=== PATIENT | female | born 1990 | race Caucasian/White ===

== ENCOUNTER 2016-03-22 08:34 | Emergency (ER) | payer OTHER ==
[~2016-03-22] VITALS: Ht 160 cm; Wt 85.1 kg
[~2016-03-22 08:34] MED LIST: BUSPAR10 MG PO; BUSPAR5 MG PO; DOCUSATE SODIU100 MG PO; FAMOTIDINE20 MG PO; HYDROXYZINE PAM25 MG PO; IBUPROFEN800 MG PO; KEFLEX500 MG PO; METHADONE5 MG PO; PNV PRENATAL P1 EACH PO; TYLENOL EXTRA500 MG PO; ULTRAM50 MG PO; VISTARIL25 MG PO; ZANTAC150 MG PO; ZOFRAN ODT4 MG PO; ZOFRAN4 MG PO
[2016-03-22] MEDS ORDERED: AZITHROMYCIN250 MG PO (09:30)
[2016-03-22 09:41] VITALS: BP 118/64
== END 2016-03-22 09:50 | disposition home or self-care (01) ==
LOC: EME 08:34
DX: J06.9 Acute upper respiratory infection, unspecified (principal); R11.2 Nausea with vomiting, unspecified; Z79.891 Long term (current) use of opiate analgesic; F17.200 Nicotine dependence, unspecified, uncomplicated
CPT/HCPCS: 99281; 99283

== ENCOUNTER 2016-06-18 12:46 | Outpatient (CLI) | payer OTHER ==
[~2016-06-18 12:46] MED LIST changes: +AZITHROMYCIN250 MG PO
[2016-06-18 12:55] VITALS: BP 112/59
[2016-06-18 14:27] LABS: ADD MIUA? YES; BILIRUBIN NEGATIVE; BLOOD NEGATIVE; COLOR AMBER ((YELLOW)); GLUCOSE (STRIP) NEGATIVE; KETONES 5; LEUKOCYTES SMALL; NITRITE NEGATIVE; PROTEIN (STRIP) 100; SPECIFIC GRAVITY 1.031 (1.000-1.030); UROBILINOGEN 0.2 MG/DL (0.2-1.0)
[2016-06-18 14:43] LABS: BACTERIA NONE SEEN /HPF; EPITHELIAL CELLS 1+ /HPF; MUCUS 2+ /LPF; RED BLOOD CELLS 0-5 /HPF (0-5); UCUL ADDED? NO; WHITE BLOOD CELLS 0-5 /HPF (0-5)
[2016-06-18 14:47] LABS: AMPHETAMINES QUANT VALUE 0 NG/ML; BARBITUATES QUANT VALUE 0 NG/ML; BENZODIAZEPINES QUANT VALUE 0 NG/ML; BENZODIAZEPINES, URINE SCREEN Negative (200 ng/mL); MARIJUANA QUANT VALUE 0 NG/ML; OPIATES QUANTITATIVE VALUE 0 NG/ML; PHENCYCLIDINE QUANT VALUE 0 NG/ML
[2016-06-18 15:35] LABS: BASOPHIL COUNT 0.1 K/uL (0-0.1); EOSINOPHIL COUNT 0.2 K/uL (0-0.3); HEMATOCRIT 35.6 % (36.0-46.0); IMMATURE GRANULOCYTE (%) 0.5 % (0.0-0.7); IMMATURE GRANULOCYTE COUNT 0.1 K/uL; INSTRUMENT ABS NEUTROPHIL CT 7.8 K/uL; LYMPHOCYTE COUNT 2.8 K/uL (1.0-2.8); MCH 30.5 PG (29.0-34.0); MCHC 31.5 G/DL (30.0-36.0); MEAN PLAT.VOLUME 11.4 uM^3 (9.5-12.4); MONOCYTE (%) 4.2 % (3-12); MONOCYTE COUNT 0.5 K/uL (0-0.8); NEUTROPHIL (%) 68.4 % (45-76); NEUTROPHIL COUNT 7.8 K/uL (1.8-6.4); PLATELET COUNT 244 K/uL (156-360); RBC DIS.WIDTH-CV 13.9 % (11.8-14.6); RBC DIS.WIDTH-SD 49.2 % (39-53); RED BLOOD COUNT 3.67 M/uL (3.80-5.20); WHITE BLOOD COUNT 11.4 K/uL (4.1-10.2)
[2016-06-18 15:46] LABS: ANION GAP 6 MEQ/L (2-14); CHLORIDE 101 MEQ/L (99-109); POTASSIUM 4.3 MEQ/L (3.7-5.4); SAMPLE HEMOLYSIS CHECK 0; SAMPLE ICTERIC CHECK 0; SAMPLE LIPEMIA CHECK 0; SODIUM 135 MEQ/L (136-147); TOTAL BILIRUBIN 0.1 MG/DL (0.0-1.0)
[2016-06-18 15:52] LABS: ALKALINE PHOSPHATASE 53 IU/L (3-129); GFR ESTIMATE (CALCULATED) > 59 mL/min/; GLUCOSE 102 mg/dL (70-99); UREA NITROGEN (BUN) 7 mg/dL (9-23)
[2016-06-19 12:14] LABS: HBSG INDEX 0.16; HIV INDEX 0.07; HIV-1/2 AB/AG COMBO Nonreactive
[2016-06-20 12:13] LABS: TREPONEMA ANTIBODY NEGATIVE (NEGATIVE)
== END 2016-06-18 17:50 | disposition home or self-care (01) ==
LOC: LDRP-OP 12:46 → 2WEST 12:47 → LDRP-OP 12-05 18:02
PROVIDERS: Advanced Practice Midwife
DX: O26.892 Other specified pregnancy related conditions, second trimester (principal); R10.9 Unspecified abdominal pain; R39.89 Other symptoms and signs involving the genitourinary system; Z3A.20 20 weeks gestation of pregnancy; O99.322 Drug use complicating pregnancy, second trimester; F11.20 Opioid dependence, uncomplicated; O99.332 Smoking (tobacco) complicating pregnancy, second trimester; F17.200 Nicotine dependence, unspecified, uncomplicated; O09.893 Supervision of other high risk pregnancies, third trimester
CPT/HCPCS: 59025; 80053; 80306 90; 81003; 85025; 86703; 86762; 86780; 86850; 86900; 86901; 87070; 87075; 87205; 87340; G0378

== ENCOUNTER 2016-08-07 14:30 | Emergency (ER) | payer OTHER ==
[~2016-08-07] VITALS: Ht 160 cm; Wt 82.9 kg
[2016-08-07 15:15] LABS: ADD MIUA? YES; BILIRUBIN SMALL; BLOOD NEGATIVE; GLUCOSE (STRIP) NEGATIVE; KETONES 5; LEUKOCYTES LARGE; NITRITE NEGATIVE; PROTEIN (STRIP) 100; SPECIFIC GRAVITY 1.032 (1.000-1.030)
[2016-08-07 15:18] LABS: COLOR DK YELLOW ((YELLOW))
[2016-08-07 15:29] LABS: BACTERIA 3+ /HPF; CASTS NONE SEEN /LPF; CRYSTALS NONE SEEN; EPITHELIAL CELLS 3+ /HPF; MUCUS 2+ /LPF; UCUL ADDED? YES
[2016-08-07] MEDS ORDERED: MACROBID100 MG PO (15:37)
[2016-08-07 16:25] VITALS: BP 104/61
== END 2016-08-07 16:27 | disposition home or self-care (01) ==
LOC: EME 14:30
PROVIDERS: Nurse Practitioner Family
DX: O99.513 Diseases of the respiratory system complicating pregnancy, third trimester (principal); O23.43 Unspecified infection of urinary tract in pregnancy, third trimester; O99.333 Smoking (tobacco) complicating pregnancy, third trimester; J06.9 Acute upper respiratory infection, unspecified; F17.200 Nicotine dependence, unspecified, uncomplicated; Z3A.28 28 weeks gestation of pregnancy; Z88.0 Allergy status to penicillin; Z88.1 Allergy status to other antibiotic agents
CPT/HCPCS: 81003; 87086; 87651 90; 99281; 99284

== ENCOUNTER 2016-08-12 14:14 | Emergency (ER) | payer OTHER ==
[~2016-08-12] VITALS: Ht 160 cm; Wt 82.3 kg
[~2016-08-12 14:14] MED LIST changes: +MACROBID100 MG PO
[2016-08-12 14:27] VITALS: BP 123/41
[2016-08-12] MEDS ORDERED: VENTOLIN HFA18 GM IH (16:18)
[2016-08-12] MEDS ORDERED: PREDNISONE20 MG PO (16:18)
[2016-08-12] MEDS ORDERED: TESSALON PERLE100 MG PO (16:18)
== END 2016-08-12 16:33 | disposition home or self-care (01) ==
LOC: EME 14:14
DX: J20.9 Acute bronchitis, unspecified (principal); Z88.0 Allergy status to penicillin; Z88.1 Allergy status to other antibiotic agents; Z33.1 Pregnant state, incidental; Z72.0 Tobacco use
CPT/HCPCS: 71020; 94640; 99281; 99283

== ENCOUNTER 2016-10-21 08:11 | Inpatient (IN) | payer OTHER ==
[2016-10-21] VITALS (12 sets, daily range): BP systolic 99–122; BP diastolic 48–68
[~2016-10-21] VITALS: Ht 160 cm; Wt 82.1 kg
[~2016-10-21 08:11] MED LIST changes: +PREDNISONE20 MG PO; +TESSALON PERLE100 MG PO; +VENTOLIN HFA18 GM IH
[2016-10-21 10:01] LABS: EOSINOPHIL (%) 0.7 % (0-5); EOSINOPHIL COUNT 0.1 K/uL (0-0.3); HEMATOCRIT 29.1 % (36.0-46.0); IMMATURE GRANULOCYTE (%) 0.8 % (0.0-0.7); IMMATURE GRANULOCYTE COUNT 0.1 K/uL; INSTRUMENT ABS NEUTROPHIL CT 6.6 K/uL; LYMPHOCYTE COUNT 2.3 K/uL (1.0-2.8); MCHC 31.6 G/DL (30.0-36.0); MCV 94.8 FL (83-99); MEAN PLAT.VOLUME 10.6 uM^3 (9.5-12.4); MONOCYTE (%) 4.6 % (3-12); MONOCYTE COUNT 0.4 K/uL (0-0.8); NEUTROPHIL (%) 69.6 % (45-76); NEUTROPHIL COUNT 6.6 K/uL (1.8-6.4); PLATELET COUNT 240 K/uL (156-360); RBC DIS.WIDTH-CV 14.4 % (11.8-14.6); RED BLOOD COUNT 3.07 M/uL (3.80-5.20); WHITE BLOOD COUNT 9.4 K/uL (4.1-10.2)
[2016-10-21 10:25] LABS: AMPHETAMINES QUANT VALUE 0 NG/ML; BARBITUATES QUANT VALUE 0 NG/ML; BENZODIAZEPINES QUANT VALUE 0 NG/ML; BENZODIAZEPINES, URINE SCREEN Negative (200 ng/mL); MARIJUANA QUANT VALUE 0 NG/ML; OPIATES QUANTITATIVE VALUE 0 NG/ML; PHENCYCLIDINE QUANT VALUE 0 NG/ML
[2016-10-21] MEDS ORDERED: PRENATAL TABLE1 EAC3 PO (10:58)
[2016-10-21] MEDS ORDERED: METHADOSE10 MG/1 ML PO (10:59)
[2016-10-22 07:25] LABS: EOSINOPHIL (%) 0.8 % (0-5); EOSINOPHIL COUNT 0.1 K/uL (0-0.3); HEMATOCRIT 25.3 % (36.0-46.0); IMMATURE GRANULOCYTE (%) 0.8 % (0.0-0.7); IMMATURE GRANULOCYTE COUNT 0.1 K/uL; INSTRUMENT ABS NEUTROPHIL CT 7.2 K/uL; LYMPHOCYTE COUNT 3.8 K/uL (1.0-2.8); MCH 30.6 PG (29.0-34.0); MCV 95.5 FL (83-99); MONOCYTE (%) 6.9 % (3-12); MONOCYTE COUNT 0.8 K/uL (0-0.8); NEUTROPHIL (%) 59.8 % (45-76); NEUTROPHIL COUNT 7.2 K/uL (1.8-6.4); PLATELET COUNT 221 K/uL (156-360); RBC DIS.WIDTH-CV 14.6 % (11.8-14.6); RBC DIS.WIDTH-SD 50.2 % (39-53); RED BLOOD COUNT 2.65 M/uL (3.80-5.20)
[2016-10-22 23:00] VITALS: BP 115/52
== END 2016-10-23 12:01 | disposition home or self-care (01) | DRG 775 ==
LOC: LDRP-OP → 2WEST 08:12 → LDRP-OP 12-05 18:01
PROVIDERS: Advanced Practice Midwife; Obstetrics & Gynecology
DX: O36.5930 Maternal care for other known or suspected poor fetal growth, third trimester, not applicable or unspecified (principal); O99.334 Smoking (tobacco) complicating childbirth; F17.200 Nicotine dependence, unspecified, uncomplicated; E66.9 Obesity, unspecified; O99.214 Obesity complicating childbirth; Z37.0 Single live birth; Z68.33 Body mass index [BMI] 33.0-33.9, adult; O99.02 Anemia complicating childbirth; D50.9 Iron deficiency anemia, unspecified; Z3A.38 38 weeks gestation of pregnancy; O99.324 Drug use complicating childbirth; F11.20 Opioid dependence, uncomplicated
CPT/HCPCS: 80306 90; 85025; C1755; J7120

== ENCOUNTER 2016-11-14 14:07 | Emergency (ER) | payer OTHER ==
[~2016-11-14] VITALS: Ht 160 cm; Wt 85.8 kg
[~2016-11-14 14:07] MED LIST changes: +METHADOSE10 MG/1 ML PO; +PRENATAL TABLE1 EAC3 PO
[2016-11-14 16:11] LABS: ADD MIUA? YES; BILIRUBIN NEGATIVE; BLOOD MODERATE; COLOR YELLOW ((YELLOW)); GLUCOSE (STRIP) NEGATIVE; KETONES NEGATIVE; LEUKOCYTES LARGE; NITRITE NEGATIVE; PROTEIN (STRIP) NEGATIVE; SPECIFIC GRAVITY 1.011 (1.000-1.030); UROBILINOGEN 0.2 MG/DL (0.2-1.0)
[2016-11-14 16:18] LABS: EOSINOPHIL (%) 2.2 % (0-5); EOSINOPHIL COUNT 0.3 K/uL (0-0.3); HEMATOCRIT 31.7 % (36.0-46.0); IMMATURE GRANULOCYTE (%) 0.3 % (0.0-0.7); INSTRUMENT ABS NEUTROPHIL CT 7.9 K/uL; LYMPHOCYTE COUNT 3.1 K/uL (1.0-2.8); MCH 29.5 PG (29.0-34.0); MCHC 30.9 G/DL (30.0-36.0); MCV 95.5 FL (83-99); MEAN PLAT.VOLUME 9.9 uM^3 (9.5-12.4); MONOCYTE (%) 5.4 % (3-12); MONOCYTE COUNT 0.7 K/uL (0-0.8); NEUTROPHIL COUNT 7.9 K/uL (1.8-6.4); PLATELET COUNT 362 K/uL (156-360); RBC DIS.WIDTH-CV 14.3 % (11.8-14.6); RED BLOOD COUNT 3.32 M/uL (3.80-5.20)
[2016-11-14 16:24] LABS: BACTERIA RARE /HPF; EPITHELIAL CELLS RARE /HPF; MUCUS TRACE /LPF; RED BLOOD CELLS 40-50 /HPF (0-5); UCUL ADDED? YES; WHITE BLOOD CELLS TNTC /HPF (0-5)
[2016-11-14 16:30] LABS: CHLORIDE 103 mEq/L (99-109); POTASSIUM 4.4 mEq/L (3.7-5.4); SODIUM 140 mEq/L (136-147)
[2016-11-14 16:31] LABS: MAGNESIUM 2.1 mg/dL (1.3-2.7)
[2016-11-14 16:33] LABS: GLUCOSE 78 mg/dL (70-99)
[2016-11-14 16:34] LABS: ANION GAP 9 MEQ/L (2-14)
[2016-11-14 16:35] LABS: TOTAL BILIRUBIN 0.2 mg/dL (0.0-1.0)
[2016-11-14 16:36] LABS: ALKALINE PHOSPHATASE 87 IU/L (3-129)
[2016-11-14 16:37] LABS: GFR ESTIMATE (CALCULATED) > 59 mL/min/
[2016-11-14 16:38] LABS: UREA NITROGEN (BUN) 10 mg/dL (9-23)
[2016-11-14] MEDS ORDERED: MACROBID100 MG PO (17:20)
[2016-11-14] MEDS ORDERED: TRAZODONE HCL50 MG PO (17:43)
[2016-11-14] MEDS ORDERED: CATAPRES0.1 MG PO (17:43)
[2016-11-14 17:53] VITALS: BP 118/57
== END 2016-11-14 18:19 | disposition home or self-care (01) ==
LOC: EME 14:07
PROVIDERS: Physician Assistant Medical
DX: N39.0 Urinary tract infection, site not specified (principal); R60.0 Localized edema; F17.200 Nicotine dependence, unspecified, uncomplicated
CPT/HCPCS: 80053; 81003; 83735; 85025; 87086; 99281; 99284

== ENCOUNTER 2016-11-19 22:13 | Emergency (ER) | payer OTHER ==
[~2016-11-19] VITALS: Ht 160 cm; Wt 84.6 kg
[~2016-11-19 22:13] MED LIST changes: +CATAPRES0.1 MG PO; +TRAZODONE HCL50 MG PO
[2016-11-19 23:55] VITALS: BP 150/99
[2016-11-19 23:55] LABS: AMPHETAMINE PRESUMPTIVE POSITIVE (500 ng/mL); BARBITURATES NEGATIVE (200 ng/mL); BENZODIAZEPINES NEGATIVE (150 ng/mL); COCAINE NEGATIVE (150 ng/mL); INTERNAL CONTROLS VALID? YES; METHADONE PRESUMPTIVE POSITIVE (200 ng/mL); METHAMPHETAMINE NEGATIVE (500 ng/mL); OPIATES (MORPHINE) NEGATIVE (100 ng/mL); OXYCODONE NEGATIVE (100 ng/mL); PHENCYCLIDINE PRESUMPTIVE POSITIVE (25 ng/mL); PROPOXYPHENE NEGATIVE (300 ng/mL); THC CANNABINOIDS NEGATIVE (50 ng/mL); TRICYCLIC ANTIDEPRESSANTS NEGATIVE (300 ng/mL)
[2016-11-19 23:56] LABS: ADD MEDTOX COMMENT Y
[2016-11-20 00:03] LABS: BASOPHIL COUNT 0.1 K/uL (0-0.1); EOSINOPHIL (%) 1.7 % (0-5); EOSINOPHIL COUNT 0.2 K/uL (0-0.3); HEMATOCRIT 31.4 % (36.0-46.0); IMMATURE GRANULOCYTE (%) 0.3 % (0.0-0.7); INSTRUMENT ABS NEUTROPHIL CT 8.8 K/uL; LYMPHOCYTE COUNT 2.9 K/uL (1.0-2.8); MCH 29.3 PG (29.0-34.0); MCHC 31.5 G/DL (30.0-36.0); MCV 92.9 FL (83-99); MEAN PLAT.VOLUME 9.6 uM^3 (9.5-12.4); MONOCYTE COUNT 0.6 K/uL (0-0.8); NEUTROPHIL (%) 69.7 % (45-76); NEUTROPHIL COUNT 8.8 K/uL (1.8-6.4); PLATELET COUNT 362 K/uL (156-360); RBC DIS.WIDTH-CV 14.6 % (11.8-14.6); RBC DIS.WIDTH-SD 49.3 % (39-53); RED BLOOD COUNT 3.38 M/uL (3.80-5.20); WHITE BLOOD COUNT 12.7 K/uL (4.1-10.2)
[2016-11-20 00:13] LABS: CHLORIDE 105 mEq/L (99-109); POTASSIUM 3.6 mEq/L (3.7-5.4); SODIUM 142 mEq/L (136-147)
[2016-11-20 00:16] LABS: GLUCOSE 78 mg/dL (70-99)
[2016-11-20 00:17] LABS: ANION GAP 11 MEQ/L (2-14)
[2016-11-20 00:19] LABS: ALKALINE PHOSPHATASE 94 IU/L (3-129); GFR ESTIMATE (CALCULATED) > 59 mL/min/; SERUM ETHYL ALCOHOL < 10 mg/dL
[2016-11-20 00:20] LABS: UREA NITROGEN (BUN) 11 mg/dL (9-23)
[2016-11-20 00:22] LABS: TOTAL BILIRUBIN 0.3 mg/dL (0.0-1.0)
== END 2016-11-20 00:33 | disposition home or self-care (01) ==
LOC: EME → EDBD 22:13 → EME 11-20 00:33
PROVIDERS: Emergency Medicine
DX: F43.20 Adjustment disorder, unspecified (principal); F11.20 Opioid dependence, uncomplicated; F32.9 Major depressive disorder, single episode, unspecified; M79.89 Other specified soft tissue disorders; F17.210 Nicotine dependence, cigarettes, uncomplicated; Z88.0 Allergy status to penicillin; Z88.1 Allergy status to other antibiotic agents
CPT/HCPCS: 73110; 80053; 84999; 85025; 90839; 99281; 99284; G0480

== ENCOUNTER 2016-11-30 11:38 | Emergency (ER) | payer OTHER ==
[~2016-11-30] VITALS: Ht 160 cm; Wt 82.2 kg
[2016-11-30] MEDS ORDERED: ERYTHROMYC1 APPLICAT BOTH EYES (12:51)
[2016-11-30 13:33] VITALS: BP 136/70
== END 2016-11-30 13:34 | disposition home or self-care (01) ==
LOC: EME 11:38
DX: H10.9 Unspecified conjunctivitis (principal); M54.9 Dorsalgia, unspecified; G89.29 Other chronic pain; F17.200 Nicotine dependence, unspecified, uncomplicated
CPT/HCPCS: 99281; 99284

== ENCOUNTER 2016-12-09 02:52 | Emergency (ER) | payer OTHER ==
[~2016-12-09] VITALS: Ht 160 cm; Wt 80.6 kg
[~2016-12-09 02:52] MED LIST changes: +ERYTHROMYC1 APPLICAT BOTH EYES
[2016-12-09 05:16] LABS: CHLORIDE 105 mEq/L (99-109); POTASSIUM 3.7 mEq/L (3.7-5.4); SODIUM 142 mEq/L (136-147)
[2016-12-09 05:18] LABS: GLUCOSE 87 mg/dL (70-99)
[2016-12-09 05:19] LABS: ANION GAP 13 MEQ/L (2-14)
[2016-12-09 05:22] LABS: GFR ESTIMATE (CALCULATED) > 59 mL/min/; UREA NITROGEN (BUN) 12 mg/dL (9-23)
[2016-12-09 05:36] LABS: EOSINOPHIL (%) 3.2 % (0-5); EOSINOPHIL COUNT 0.3 K/uL (0-0.3); HEMATOCRIT 34.9 % (36.0-46.0); IMMATURE GRANULOCYTE (%) 0.2 % (0.0-0.7); INSTRUMENT ABS NEUTROPHIL CT 3.7 K/uL; LYMPHOCYTE COUNT 3.8 K/uL (1.0-2.8); MCH 28.5 PG (29.0-34.0); MCHC 30.9 G/DL (30.0-36.0); MCV 92.1 FL (83-99); MEAN PLAT.VOLUME 10.1 uM^3 (9.5-12.4); MONOCYTE (%) 7.1 % (3-12); MONOCYTE COUNT 0.6 K/uL (0-0.8); NEUTROPHIL (%) 44.1 % (45-76); NEUTROPHIL COUNT 3.7 K/uL (1.8-6.4); PLATELET COUNT 362 K/uL (156-360); RBC DIS.WIDTH-CV 14.9 % (11.8-14.6); RED BLOOD COUNT 3.79 M/uL (3.80-5.20); WHITE BLOOD COUNT 8.5 K/uL (4.1-10.2)
[2016-12-09 06:34] LABS: QUANTITATIVE HCG < 4.0 MIU/ML
[2016-12-09] MEDS ORDERED: TRAZODONE HCL50 MG PO (06:46)
[2016-12-09] MEDS ORDERED: CLONIDINE HCL0.1 MG PO (06:46)
[2016-12-09 07:11] VITALS: BP 106/78
== END 2016-12-09 07:13 | disposition home or self-care (01) ==
LOC: EME 02:52
PROVIDERS: Emergency Medicine
DX: F11.23 Opioid dependence with withdrawal (principal); R05 Cough; F17.200 Nicotine dependence, unspecified, uncomplicated; Z88.0 Allergy status to penicillin; Z88.1 Allergy status to other antibiotic agents
CPT/HCPCS: 71020; 80048; 84702; 85025; 93005; 94640; 99281; 99285; J1885

== ENCOUNTER 2016-12-21 22:24 | Inpatient (IN) | payer OTHER ==
[~2016-12-21] VITALS: Ht 157.5 cm; Wt 80.3 kg
[~2016-12-21 22:24] MED LIST changes: +CLONIDINE HCL0.1 MG PO
[2016-12-21 23:11] LABS: EOSINOPHIL (%) 2.8 % (0-5); EOSINOPHIL COUNT 0.3 K/uL (0-0.3); HEMATOCRIT 32.2 % (36.0-46.0); IMMATURE GRANULOCYTE (%) 0.5 % (0.0-0.7); INSTRUMENT ABS NEUTROPHIL CT 4.9 K/uL; LYMPHOCYTE COUNT 3.3 K/uL (1.0-2.8); MCH 27.7 PG (29.0-34.0); MCHC 30.1 G/DL (30.0-36.0); MONOCYTE (%) 4.1 % (3-12); MONOCYTE COUNT 0.4 K/uL (0-0.8); NEUTROPHIL (%) 55.3 % (45-76); NEUTROPHIL COUNT 4.9 K/uL (1.8-6.4); PLATELET COUNT 387 K/uL (156-360); RBC DIS.WIDTH-CV 15.3 % (11.8-14.6); RBC DIS.WIDTH-SD 51.6 % (39-53); WHITE BLOOD COUNT 8.8 K/uL (4.1-10.2)
[2016-12-21 23:15] LABS: ADD MIUA? YES; BILIRUBIN NEGATIVE; BLOOD MODERATE; COLOR YELLOW ((YELLOW)); GLUCOSE (STRIP) NEGATIVE; KETONES NEGATIVE; LEUKOCYTES TRACE; NITRITE NEGATIVE; PROTEIN (STRIP) NEGATIVE; SPECIFIC GRAVITY 1.006 (1.000-1.030); UROBILINOGEN 0.2 MG/DL (0.2-1.0)
[2016-12-21 23:17] LABS: BACTERIA NONE SEEN /HPF; EPITHELIAL CELLS RARE /HPF; MUCUS TRACE /LPF; UCUL ADDED? NO; WHITE BLOOD CELLS 0-5 /HPF (0-5)
[2016-12-21 23:25] LABS: AMPHETAMINE NEGATIVE (500 ng/mL); BARBITURATES NEGATIVE (200 ng/mL); BENZODIAZEPINES PRESUMPTIVE POSITIVE (150 ng/mL); COCAINE PRESUMPTIVE POSITIVE (150 ng/mL); INTERNAL CONTROLS VALID? YES; METHADONE PRESUMPTIVE POSITIVE (200 ng/mL); METHAMPHETAMINE NEGATIVE (500 ng/mL); OPIATES (MORPHINE) NEGATIVE (100 ng/mL); OXYCODONE NEGATIVE (100 ng/mL); PHENCYCLIDINE PRESUMPTIVE POSITIVE (25 ng/mL); PROPOXYPHENE NEGATIVE (300 ng/mL); THC CANNABINOIDS NEGATIVE (50 ng/mL); TRICYCLIC ANTIDEPRESSANTS PRESUMPTIVE POSITIVE (300 ng/mL)
[2016-12-21 23:26] LABS: CHLORIDE 105 mEq/L (99-109); POTASSIUM 3.4 mEq/L (3.7-5.4); SODIUM 143 mEq/L (136-147)
[2016-12-21 23:26] LABS: ADD MEDTOX COMMENT Y
[2016-12-21 23:29] LABS: GLUCOSE 94 mg/dL (70-99)
[2016-12-21 23:30] LABS: ANION GAP 10 MEQ/L (2-14); TOTAL BILIRUBIN 0.2 mg/dL (0.0-1.0)
[2016-12-21 23:31] LABS: SERUM ETHYL ALCOHOL < 10 mg/dL
[2016-12-21 23:32] LABS: GFR ESTIMATE (CALCULATED) > 59 mL/min/
[2016-12-21 23:33] LABS: ALKALINE PHOSPHATASE 79 IU/L (3-129)
[2016-12-21 23:34] LABS: UREA NITROGEN (BUN) 10 mg/dL (9-23)
[2016-12-21 23:36] LABS: CREATINE KINASE 160 IU/L (1-294); SALICYLATE < 5.0 MG/DL (15-30); TOTAL CK 160 IU/L (1-294)
[2016-12-21 23:43] LABS: QUANTITATIVE HCG < 4.0 MIU/ML
[2016-12-21 23:44] LABS: CK-MB 2.9 ng/mL (0.0-4.9)
[2016-12-22] VITALS (17 sets, daily range): BP systolic 101–160; BP diastolic 62–98
[2016-12-22 00:20] LABS: BENZODIAZEPINES QUANT VALUE 0 NG/ML; BENZODIAZEPINES, URINE SCREEN Negative (200 ng/mL)
[2016-12-22 06:55] LABS: BICARBONATE 29.7 mEq/L (22-26); CARBOXY HGB 2.6 % (0-5); COMMENTS - BLOOD GASES A+C+; DEVICE NRBM; FI02 100 %; METHEMOGLOBIN 1.7 % (0-1.5); O2 FLOW 15 L/MIN; PCO2 55 mm Hg (35-45); PO2 55 mm Hg (80-100); SITE RR; pH 7.34 (7.35-7.45)
[2016-12-22 06:56] LABS: TOTAL RESP RATE 15 resp/min
[2016-12-22 08:43] LABS: BASE EXCESS 1.7 mEq/L (-3 to +3); BICARBONATE 28.1 mEq/L (22-26); CARBOXY HGB 2.1 % (0-5); COMMENTS - BLOOD GASES A+C+; DEVICE 840; FI02 70 %; METHEMOGLOBIN 1.2 % (0-1.5); MODE A/C; PCO2 52 mm Hg (35-45); PO2 65 mm Hg (80-100); SITE LR; pH 7.34 (7.35-7.45)
[2016-12-22 08:44] LABS: MECHANICAL RATE 10 resp/min; PEEP 12 CM/H20; TIDAL VOLUME 550 ML; TOTAL RESP RATE 15 resp/min
[2016-12-22 09:35] LABS: MAGNESIUM 1.8 mg/dl (1.3-2.7)
[2016-12-22 09:57] LABS: METH RESISTANT S AUREUS PCR NEGATIVE (NEGATIVE)
[2016-12-22 09:58] LABS: PROBE CHECK PASS; SPECIMEN PROCESSING CONTROL PASS
[2016-12-23] VITALS (22 sets, daily range): BP systolic 92–125; BP diastolic 42–71
[2016-12-23 05:22] LABS: MCHC 30.6 G/DL (30.0-36.0); MCV 94.5 FL (83-99); MEAN PLAT.VOLUME 10.3 uM^3 (9.5-12.4); PLATELET COUNT 314 K/uL (156-360); RBC DIS.WIDTH-CV 15.8 % (11.8-14.6); RBC DIS.WIDTH-SD 54.9 % (39-53); RED BLOOD COUNT 3.28 M/uL (3.80-5.20); WHITE BLOOD COUNT 29.6 K/uL (4.1-10.2)
[2016-12-23 05:50] LABS: ANION GAP 10 MEQ/L (2-14); CHLORIDE 105 MEQ/L (99-109); GFR ESTIMATE (CALCULATED) > 59 mL/min/; GLUCOSE 77 mg/dL (70-99); SAMPLE HEMOLYSIS CHECK 0; SAMPLE ICTERIC CHECK 0; SAMPLE LIPEMIA CHECK 0; SODIUM 142 MEQ/L (136-147); UREA NITROGEN (BUN) 12 mg/dL (9-23)
[2016-12-23 05:59] LABS: POTASSIUM 4.1 MEQ/L (3.7-5.4)
[2016-12-24] VITALS (25 sets, daily range): BP systolic 0–130; BP diastolic 0–81
[2016-12-24 05:21] LABS: MEAN PLAT.VOLUME 10.5 uM^3 (9.5-12.4); PLATELET COUNT 303 K/uL (156-360)
[2016-12-24 05:47] LABS: ANION GAP 9 MEQ/L (2-14); CHLORIDE 107 MEQ/L (99-109); GFR ESTIMATE (CALCULATED) > 59 mL/min/; GLUCOSE 87 mg/dL (70-99); MAGNESIUM 1.7 mg/dl (1.3-2.7); POTASSIUM 3.8 MEQ/L (3.7-5.4); SAMPLE HEMOLYSIS CHECK 0; SAMPLE ICTERIC CHECK 0; SAMPLE LIPEMIA CHECK 0; SODIUM 139 MEQ/L (136-147); UREA NITROGEN (BUN) 11 mg/dL (9-23)
[2016-12-24 06:01] LABS: BASE EXCESS 0.2 mEq/L (-3 to +3); BICARBONATE 25.4 mEq/L (22-26); CARBOXY HGB 2.1 % (0-5); METHEMOGLOBIN 1.8 % (0-1.5); PO2 71 mm Hg (80-100); pH 7.38 (7.35-7.45)
[2016-12-24 06:02] LABS: COMMENTS - BLOOD GASES C+; DEVICE VENT; FI02 30 %; MECHANICAL RATE 4 resp/min; MODE SIMV VC+; PCO2 43 mm Hg (35-45); PEEP 8 CM/H20; PRES. SUPPORT 10 CM/H2O; SITE LB; TOTAL RESP RATE 17 resp/min
[2016-12-24 06:14] LABS: HEMATOCRIT 28.4 % (36.0-46.0); MCHC 29.9 G/DL (30.0-36.0); MCV 93.4 FL (83-99); RBC DIS.WIDTH-CV 15.9 % (11.8-14.6); RBC DIS.WIDTH-SD 54.3 % (39-53); RED BLOOD COUNT 3.04 M/uL (3.80-5.20); WHITE BLOOD COUNT 30.3 K/uL (4.1-10.2)
[2016-12-24 07:27] LABS: ABS NEUTROPHIL COUNT 27.4; ANISOCYTOSIS 1+; BAND NEUTROPHILS 17.3 % (0-8.0); BASOPHILS 0.9 %; EOSINOPHIL ABS CT 0.3; EOSINOPHILS 0.9 % (0-5.0); HEMATOLOGY COMMENT 1 SN; HYPOCHROMASIA 1+; INSTRUMENT ABS NEUTROPHIL CT 26.2 K/uL; LYMPHOCYTES 6.2 % (15.0-45.0); MACROCYTES 1+; MYELOCYTES 0.4 %; PLAT.SUFFICIENCY ADEQUATE; POIKILOCYTOSIS 1+
[2016-12-25] VITALS (22 sets, daily range): BP systolic 109–155; BP diastolic 57–97
[2016-12-25 05:31] LABS: WHITE BLOOD COUNT 16.8 K/uL (4.1-10.2)
[2016-12-25 05:32] LABS: EOSINOPHIL (%) 1.7 % (0-5); EOSINOPHIL COUNT 0.3 K/uL (0-0.3); HEMATOCRIT 27.7 % (36.0-46.0); IMMATURE GRANULOCYTE COUNT 0.2 K/uL; INSTRUMENT ABS NEUTROPHIL CT 13.8 K/uL; MCH 28.2 PG (29.0-34.0); MCHC 30.3 G/DL (30.0-36.0); MEAN PLAT.VOLUME 10.8 uM^3 (9.5-12.4); MONOCYTE (%) 3.4 % (3-12); MONOCYTE COUNT 0.6 K/uL (0-0.8); NEUTROPHIL COUNT 13.8 K/uL (1.8-6.4); PLATELET COUNT 266 K/uL (156-360); RBC DIS.WIDTH-CV 15.6 % (11.8-14.6); RBC DIS.WIDTH-SD 53.4 % (39-53); RED BLOOD COUNT 2.98 M/uL (3.80-5.20)
[2016-12-25 06:02] LABS: ANION GAP 9 MEQ/L (2-14); CHLORIDE 108 MEQ/L (99-109); GFR ESTIMATE (CALCULATED) > 59 mL/min/; GLUCOSE 115 mg/dL (70-99); POTASSIUM 3.5 MEQ/L (3.7-5.4); SAMPLE HEMOLYSIS CHECK 0; SAMPLE ICTERIC CHECK 0; SAMPLE LIPEMIA CHECK 0; SODIUM 140 MEQ/L (136-147); UREA NITROGEN (BUN) 9 mg/dL (9-23)
[2016-12-25] MEDS ORDERED: NEURONTIN300 MG PO (14:23)
[2016-12-25] MEDS ORDERED: LAMICTAL150 M1 PO (14:23)
[2016-12-25] MEDS ORDERED: CYCLOBENZAPRINE10 MG PO (14:23)
[2016-12-26] VITALS (11 sets, daily range): BP systolic 119–153; BP diastolic 72–105
[2016-12-26 09:42] LABS: HEMATOCRIT 29.5 % (36.0-46.0); MCH 28.7 PG (29.0-34.0); MCHC 32.5 G/DL (30.0-36.0); MEAN PLAT.VOLUME 10.4 uM^3 (9.5-12.4); RBC DIS.WIDTH-CV 15.1 % (11.8-14.6); RBC DIS.WIDTH-SD 48.6 % (39-53); RED BLOOD COUNT 3.34 M/uL (3.80-5.20); WHITE BLOOD COUNT 13.7 K/uL (4.1-10.2)
[2016-12-26 09:50] LABS: MCV 88.3 FL (83-99); PLATELET COUNT 354 K/uL (156-360)
[2016-12-26 10:01] LABS: ANION GAP 10 MEQ/L (2-14); CHLORIDE 105 MEQ/L (99-109); GFR ESTIMATE (CALCULATED) > 59 mL/min/; GLUCOSE 107 mg/dL (70-99); SAMPLE HEMOLYSIS CHECK 0; SAMPLE ICTERIC CHECK 0; SAMPLE LIPEMIA CHECK 0; SODIUM 141 MEQ/L (136-147); UREA NITROGEN (BUN) 7 mg/dL (9-23)
[2016-12-27] VITALS (14 sets, daily range): BP systolic 128–148; BP diastolic 30–100
[2016-12-27 08:11] LABS: HEMATOCRIT 30.9 % (36.0-46.0); MCH 27.2 PG (29.0-34.0); MCHC 30.4 G/DL (30.0-36.0); MCV 89.6 FL (83-99); MEAN PLAT.VOLUME 9.7 uM^3 (9.5-12.4); PLATELET COUNT 404 K/uL (156-360); RBC DIS.WIDTH-CV 15.3 % (11.8-14.6); RBC DIS.WIDTH-SD 50.4 % (39-53); RED BLOOD COUNT 3.45 M/uL (3.80-5.20); WHITE BLOOD COUNT 15.3 K/uL (4.1-10.2)
[2016-12-27 08:44] LABS: ANION GAP 12 MEQ/L (2-14); CHLORIDE 104 MEQ/L (99-109); GFR ESTIMATE (CALCULATED) > 59 mL/min/; GLUCOSE 106 mg/dL (70-99); POTASSIUM 3.8 MEQ/L (3.7-5.4); SAMPLE HEMOLYSIS CHECK 0; SAMPLE ICTERIC CHECK 0; SAMPLE LIPEMIA CHECK 0; SODIUM 142 MEQ/L (136-147); UREA NITROGEN (BUN) 12 mg/dL (9-23)
[2016-12-28 06:47] LABS: HEMATOCRIT 30.9 % (36.0-46.0); MCH 27.2 PG (29.0-34.0); MCHC 30.1 G/DL (30.0-36.0); MCV 90.4 FL (83-99); MEAN PLAT.VOLUME 9.9 uM^3 (9.5-12.4); NRBC (%) 0.3 /100 WBC (0-0); PLATELET COUNT 418 K/uL (156-360); RBC DIS.WIDTH-CV 15.2 % (11.8-14.6); RBC DIS.WIDTH-SD 50.4 % (39-53); RED BLOOD COUNT 3.42 M/uL (3.80-5.20); WHITE BLOOD COUNT 12.5 K/uL (4.1-10.2)
[2016-12-28 07:30] VITALS: BP 161/63
[2016-12-28] MEDS ORDERED: LEVOFLOXACIN750 MG PO (08:14)
[2016-12-28] MEDS ORDERED: VENTOLIN HFA18 GM IH (08:14)
[2016-12-28] MEDS ORDERED: NICOTINE PATCH1 EAC2 TD (08:14)
[2016-12-28] MEDS ORDERED: PREDNISONE20 MG PO (08:14)
== END 2016-12-28 10:38 | disposition home or self-care (01) | DRG 917 ==
LOC: EME 22:24 → EDOF 12-22 04:28 → ENRESERV 12-22 04:32 → EDOF 12-22 05:58 → 4WEST 12-22 05:58 → EDOF 12-22 05:58 → ENRESERV 12-22 06:00 → 5WEST 12-22 06:04 → ENRESERV 12-22 07:16 → 4WEST 12-22 07:16 → ENRESERV 12-27 14:19 → 5SOUTH 12-27 15:32
PROVIDERS: Emergency Medicine; Hospitalist; Internal Medicine; Internal Medicine Critical Care Medicine; Specialist
DX: T40.2X1A Poisoning by other opioids, accidental (unintentional), initial encounter (principal); T40.5X1A Poisoning by cocaine, accidental (unintentional), initial encounter; T40.901A Poisoning by unspecified psychodysleptics [hallucinogens], accidental (unintentional), initial encounter; T42.4X1A Poisoning by benzodiazepines, accidental (unintentional), initial encounter; J96.01 Acute respiratory failure with hypoxia; J69.0 Pneumonitis due to inhalation of food and vomit; F14.129 Cocaine abuse with intoxication, unspecified; F11.229 Opioid dependence with intoxication, unspecified; F16.129 Hallucinogen abuse with intoxication, unspecified; F13.129 Sedative, hypnotic or anxiolytic abuse with intoxication, unspecified; F32.9 Major depressive disorder, single episode, unspecified; F41.9 Anxiety disorder, unspecified; E87.2 Acidosis; R40.20 Unspecified coma; I34.0 Nonrheumatic mitral (valve) insufficiency; E87.6 Hypokalemia; E66.9 Obesity, unspecified; Z68.33 Body mass index [BMI] 33.0-33.9, adult; D64.9 Anemia, unspecified; F17.200 Nicotine dependence, unspecified, uncomplicated; Z81.8 Family history of other mental and behavioral disorders
CPT/HCPCS: 36600; 70450; 71010; 80048; 80053; 80175 90; 80202; 81003; 82550; 82553; 82803; 83735; 84100; 84702; 84999; 85025; 85027; 87070; 87077; 87147; 87186; 87205; 87641; 92526 GN; 92610 GN; 93005; 93306; 94002; 94003; 94640; 94640 76; 94667; 94668; 94799; 99202; 99281; 99285; G0480; J1630; J1650; J1956; J2060; J2250; J2310; J2405; J2704; J3010; J3370; J3475; J3486; J7030; J7050; J7512; S0028

== ENCOUNTER 2017-01-30 22:35 | Emergency (ER) | payer OTHER ==
[~2017-01-30] VITALS: Ht 160 cm; Wt 79.0 kg
[~2017-01-30 22:35] MED LIST changes: +CYCLOBENZAPRINE10 MG PO; +LAMICTAL150 M1 PO; +LEVOFLOXACIN750 MG PO; +NEURONTIN300 MG PO; +NICOTINE PATCH1 EAC2 TD
[2017-01-30 23:00] LABS: HEMATOCRIT 34.4 % (36.0-46.0); MCHC 29.9 G/DL (30.0-36.0); MCV 90.3 FL (83-99); MEAN PLAT.VOLUME 10.7 uM^3 (9.5-12.4); PLATELET COUNT 370 K/uL (156-360); RBC DIS.WIDTH-CV 17.3 % (11.8-14.6); RBC DIS.WIDTH-SD 57.4 % (39-53); RED BLOOD COUNT 3.81 M/uL (3.80-5.20); WHITE BLOOD COUNT 9.4 K/uL (4.1-10.2)
[2017-01-30 23:22] LABS: CHLORIDE 105 mEq/L (99-109); POTASSIUM 3.8 mEq/L (3.7-5.4); SODIUM 143 mEq/L (136-147)
[2017-01-30 23:24] LABS: GLUCOSE 120 mg/dL (70-99)
[2017-01-30 23:26] LABS: ANION GAP 10 MEQ/L (2-14)
[2017-01-30 23:27] LABS: SERUM ETHYL ALCOHOL < 10 mg/dL
[2017-01-30 23:28] LABS: GFR ESTIMATE (CALCULATED) > 59 mL/min/
[2017-01-30 23:30] LABS: UREA NITROGEN (BUN) 13 mg/dL (9-23)
[2017-01-30 23:31] LABS: SALICYLATE < 5.0 MG/DL (15-30)
[2017-01-30 23:37] LABS: QUANTITATIVE HCG < 4.0 MIU/ML
[2017-01-31 00:22] LABS: AMPHETAMINE NEGATIVE (500 ng/mL); BARBITURATES NEGATIVE (200 ng/mL); BENZODIAZEPINES PRESUMPTIVE POSITIVE (150 ng/mL); COCAINE NEGATIVE (150 ng/mL); INTERNAL CONTROLS VALID? YES; METHADONE PRESUMPTIVE POSITIVE (200 ng/mL); METHAMPHETAMINE NEGATIVE (500 ng/mL); OPIATES (MORPHINE) NEGATIVE (100 ng/mL); OXYCODONE NEGATIVE (100 ng/mL); PHENCYCLIDINE PRESUMPTIVE POSITIVE (25 ng/mL); PROPOXYPHENE NEGATIVE (300 ng/mL); THC CANNABINOIDS PRESUMPTIVE POSITIVE (50 ng/mL); TRICYCLIC ANTIDEPRESSANTS NEGATIVE (300 ng/mL)
[2017-01-31 00:23] LABS: ADD MEDTOX COMMENT Y
[2017-01-31 01:02] LABS: BENZODIAZEPINES QUANT VALUE 0 NG/ML; BENZODIAZEPINES, URINE SCREEN Negative (200 ng/mL)
[2017-01-31 06:10] VITALS: BP 123/70
== END 2017-01-31 06:11 | disposition home or self-care (01) ==
LOC: EME → EDBD 22:35 → EME 01-31 06:11
PROVIDERS: Emergency Medicine
DX: F19.10 Other psychoactive substance abuse, uncomplicated (principal); F17.200 Nicotine dependence, unspecified, uncomplicated; F32.9 Major depressive disorder, single episode, unspecified; F41.9 Anxiety disorder, unspecified; Z88.0 Allergy status to penicillin
CPT/HCPCS: 71010; 80048; 84702; 84999; 85027; 93005; 99281; 99284; G0480; J7030

== ENCOUNTER 2017-02-18 10:01 | Emergency (ER) | payer OTHER ==
[~2017-02-18] VITALS: Ht 160 cm; Wt 77.2 kg
[2017-02-18 11:07] LABS: BASOPHIL COUNT 0.1 K/uL (0-0.1); EOSINOPHIL (%) 2.3 % (0-5); EOSINOPHIL COUNT 0.2 K/uL (0-0.3); IMMATURE GRANULOCYTE (%) 0.3 % (0.0-0.7); INSTRUMENT ABS NEUTROPHIL CT 4.7 K/uL; LYMPHOCYTE COUNT 1.6 K/uL (1.0-2.8); MCH 27.3 PG (29.0-34.0); MCHC 30.3 G/DL (30.0-36.0); MEAN PLAT.VOLUME 11.5 uM^3 (9.5-12.4); MONOCYTE (%) 5.8 % (3-12); MONOCYTE COUNT 0.4 K/uL (0-0.8); NEUTROPHIL (%) 68.1 % (45-76); NEUTROPHIL COUNT 4.7 K/uL (1.8-6.4); PLATELET COUNT 308 K/uL (156-360); RBC DIS.WIDTH-CV 17.3 % (11.8-14.6); RBC DIS.WIDTH-SD 57.8 % (39-53); RED BLOOD COUNT 4.22 M/uL (3.80-5.20); WHITE BLOOD COUNT 6.9 K/uL (4.1-10.2)
[2017-02-18 11:15] LABS: CHLORIDE 103 mEq/L (99-109); POTASSIUM 3.9 mEq/L (3.7-5.4); SODIUM 140 mEq/L (136-147)
[2017-02-18 11:18] LABS: GLUCOSE 116 mg/dL (70-99)
[2017-02-18 11:19] LABS: ANION GAP 11 MEQ/L (2-14)
[2017-02-18 11:20] LABS: TOTAL BILIRUBIN 0.3 mg/dL (0.0-1.0)
[2017-02-18 11:21] LABS: SERUM ETHYL ALCOHOL < 10 mg/dL
[2017-02-18 11:22] LABS: ALKALINE PHOSPHATASE 77 IU/L (3-129); GFR ESTIMATE (CALCULATED) > 59 mL/min/
[2017-02-18 11:23] LABS: DIRECT BILIRUBIN 0.1 mg/dL (0.0-0.3)
[2017-02-18 11:24] LABS: UREA NITROGEN (BUN) 11 mg/dL (9-23)
[2017-02-18 11:25] LABS: SALICYLATE < 5.0 MG/DL (15-30)
[2017-02-18 11:34] LABS: QUANTITATIVE HCG < 4.0 MIU/ML
[2017-02-18 12:59] LABS: ADD MIUA? YES; BILIRUBIN NEGATIVE; BLOOD NEGATIVE; COLOR YELLOW ((YELLOW)); GLUCOSE (STRIP) NEGATIVE; KETONES NEGATIVE; LEUKOCYTES TRACE; NITRITE NEGATIVE; PROTEIN (STRIP) 100; SPECIFIC GRAVITY 1.015 (1.000-1.030); UROBILINOGEN 0.2 MG/DL (0.2-1.0)
[2017-02-18 13:15] LABS: BACTERIA NONE SEEN /HPF; EPITHELIAL CELLS 1+ /HPF; HYALINE CASTS 0-5 /LPF; MUCUS 1+ /LPF; RED BLOOD CELLS 0-5 /HPF (0-5); WHITE BLOOD CELLS 0-5 /HPF (0-5)
[2017-02-18 13:33] LABS: AMPHETAMINE NEGATIVE (500 ng/mL); BARBITURATES NEGATIVE (200 ng/mL); BENZODIAZEPINES PRESUMPTIVE POSITIVE (150 ng/mL); COCAINE NEGATIVE (150 ng/mL); INTERNAL CONTROLS VALID? YES; METHADONE PRESUMPTIVE POSITIVE (200 ng/mL); METHAMPHETAMINE NEGATIVE (500 ng/mL); OPIATES (MORPHINE) PRESUMPTIVE POSITIVE (100 ng/mL); OXYCODONE NEGATIVE (100 ng/mL); PHENCYCLIDINE PRESUMPTIVE POSITIVE (25 ng/mL); PROPOXYPHENE NEGATIVE (300 ng/mL); THC CANNABINOIDS PRESUMPTIVE POSITIVE (50 ng/mL); TRICYCLIC ANTIDEPRESSANTS NEGATIVE (300 ng/mL)
[2017-02-18 13:35] LABS: ADD MEDTOX COMMENT Y
[2017-02-18 13:48] VITALS: BP 112/76
[2017-02-18 14:24] LABS: BENZODIAZEPINES QUANT VALUE 0 NG/ML; BENZODIAZEPINES, URINE SCREEN Negative (200 ng/mL)
== END 2017-02-18 13:51 | disposition home or self-care (01) ==
LOC: EME 10:01
PROVIDERS: Emergency Medicine
DX: F32.9 Major depressive disorder, single episode, unspecified (principal); F11.20 Opioid dependence, uncomplicated; F16.20 Hallucinogen dependence, uncomplicated; F41.9 Anxiety disorder, unspecified; F17.200 Nicotine dependence, unspecified, uncomplicated; Z88.0 Allergy status to penicillin
CPT/HCPCS: 71020; 80048; 80076; 81003; 84702; 84999; 85025; 90839; 99281; 99284; G0480

== ENCOUNTER 2017-03-10 00:26 | Emergency (ER) | payer OTHER ==
[~2017-03-10] VITALS: Ht 160 cm; Wt 75.8 kg
[2017-03-10 01:53] LABS: HEMATOCRIT 35.7 % (36.0-46.0); MCH 27.3 PG (29.0-34.0); MCHC 30.5 G/DL (30.0-36.0); MCV 89.3 FL (83-99); MEAN PLAT.VOLUME 10.4 uM^3 (9.5-12.4); PLATELET COUNT 361 K/uL (156-360); RBC DIS.WIDTH-CV 17.6 % (11.8-14.6); RBC DIS.WIDTH-SD 58.1 % (39-53); WHITE BLOOD COUNT 11.9 K/uL (4.1-10.2)
[2017-03-10 02:01] LABS: CHLORIDE 104 mEq/L (99-109); POTASSIUM 3.8 mEq/L (3.7-5.4); SODIUM 140 mEq/L (136-147)
[2017-03-10 02:04] LABS: GLUCOSE 93 mg/dL (70-99)
[2017-03-10 02:05] LABS: ANION GAP 10 MEQ/L (2-14); TOTAL BILIRUBIN 0.4 mg/dL (0.0-1.0)
[2017-03-10 02:07] LABS: GFR ESTIMATE (CALCULATED) > 59 mL/min/; SERUM ETHYL ALCOHOL < 10 mg/dL
[2017-03-10 02:08] LABS: ALKALINE PHOSPHATASE 83 IU/L (3-129)
[2017-03-10 02:09] LABS: UREA NITROGEN (BUN) 10 mg/dL (9-23)
[2017-03-10 02:11] LABS: SALICYLATE < 5.0 MG/DL (15-30)
[2017-03-10 02:21] LABS: INTERNAL CONTROL VALID? YES
[2017-03-10 02:28] LABS: ADD MEDTOX COMMENT Y; AMPHETAMINE NEGATIVE (500 ng/mL); BARBITURATES NEGATIVE (200 ng/mL); BENZODIAZEPINES NEGATIVE (150 ng/mL); COCAINE PRESUMPTIVE POSITIVE (150 ng/mL); INTERNAL CONTROLS VALID? YES; METHADONE PRESUMPTIVE POSITIVE (200 ng/mL); METHAMPHETAMINE NEGATIVE (500 ng/mL); OPIATES (MORPHINE) NEGATIVE (100 ng/mL); OXYCODONE NEGATIVE (100 ng/mL); PHENCYCLIDINE PRESUMPTIVE POSITIVE (25 ng/mL); PROPOXYPHENE NEGATIVE (300 ng/mL); THC CANNABINOIDS PRESUMPTIVE POSITIVE (50 ng/mL); TRICYCLIC ANTIDEPRESSANTS NEGATIVE (300 ng/mL)
[2017-03-10 04:30] VITALS: BP 137/72
== END 2017-03-10 04:45 | disposition home or self-care (01) ==
LOC: EME → EDBD 00:26 → EME 04:45
PROVIDERS: Emergency Medicine
DX: F19.10 Other psychoactive substance abuse, uncomplicated (principal); F41.9 Anxiety disorder, unspecified; F32.9 Major depressive disorder, single episode, unspecified; F17.200 Nicotine dependence, unspecified, uncomplicated; Z88.0 Allergy status to penicillin
CPT/HCPCS: 80053; 84703; 84999; 85027; 93005; G0480

== ENCOUNTER 2017-03-19 08:08 | Emergency (ER) | payer OTHER ==
[~2017-03-19] VITALS: Ht 160 cm; Wt 77.4 kg
[2017-03-19] MEDS ORDERED: TESSALON PERLE100 MG PO (13:38)
[2017-03-19 14:34] VITALS: BP 113/51
[2017-03-20] MEDS ORDERED: MUCINEX DM ER1 EACH PO (09:27)
[2017-03-20] MEDS ORDERED: PREDNISONE20 MG PO (09:27)
== END 2017-03-19 14:36 | disposition home or self-care (01) ==
LOC: EME 08:08
PROVIDERS: Physician Assistant Medical
DX: B34.9 Viral infection, unspecified (principal); Z88.0 Allergy status to penicillin
CPT/HCPCS: 71020; 84703; 87651 90; 94640; 99281; 99283; J1885

== ENCOUNTER 2017-03-20 06:32 | Emergency (ER) | payer OTHER ==
[~2017-03-20] VITALS: Ht 160 cm; Wt 78.5 kg
[2017-03-20 06:36] VITALS: BP 130/92
[2017-03-20 07:49] LABS: HEMATOCRIT 34.5 % (36.0-46.0); HEMOGLOBIN 10.6 G/DL (11.9-15.5); MCH 27.2 PG (29.0-34.0); MCHC 30.7 G/DL (30.0-36.0); MCV 88.7 FL (83-99); PLATELET COUNT 320 K/uL (156-360); RBC DIS.WIDTH-CV 17.3 % (11.8-14.6); RED BLOOD COUNT 3.89 M/uL (3.80-5.20); WHITE BLOOD COUNT 16.4 K/uL (4.1-10.2)
[2017-03-20 07:59] LABS: ALBUMIN 3.8 g/dL (3.2-4.8)
[2017-03-20 08:00] LABS: CHLORIDE 102 mEq/L (99-109); POTASSIUM 4.1 mEq/L (3.7-5.4); SODIUM 138 mEq/L (136-147)
[2017-03-20 08:02] LABS: GLUCOSE 110 mg/dL (70-99); TOTAL PROTEIN 7.4 g/dL (6.4-8.3)
[2017-03-20 08:04] LABS: TOTAL BILIRUBIN 0.3 mg/dL (0.0-1.0)
[2017-03-20 08:05] LABS: ALKALINE PHOSPHATASE 78 IU/L (3-129)
[2017-03-20 08:06] LABS: CREATININE 0.7 mg/dL (0.6-1.3); GFR ESTIMATE (CALCULATED) > 59 mL/min/
[2017-03-20 08:07] LABS: AST (GOT) 14 IU/L (2-34); UREA NITROGEN (BUN) 12 mg/dL (9-23)
[2017-03-20 08:09] LABS: ALT (GPT) 9 IU/L (3-49)
[2017-03-20 08:16] LABS: QUANTITATIVE HCG < 4.0 MIU/ML
[2017-03-20 08:26] LABS: MONOSPOT (MONONUCLEOSIS SEROL) NEGATIVE
[2017-03-20] MEDS ORDERED: MUCINEX DM ER1 EACH PO (09:27)
[2017-03-20] MEDS ORDERED: PREDNISONE20 MG PO (09:27)
== END 2017-03-20 09:42 | disposition home or self-care (01) ==
LOC: EME 06:32
PROVIDERS: Nurse Practitioner Family
DX: J40 Bronchitis, not specified as acute or chronic (principal); B34.9 Viral infection, unspecified; D64.9 Anemia, unspecified; F17.200 Nicotine dependence, unspecified, uncomplicated; F32.9 Major depressive disorder, single episode, unspecified; F41.9 Anxiety disorder, unspecified; Z88.0 Allergy status to penicillin; Z88.1 Allergy status to other antibiotic agents
CPT/HCPCS: 71046; 80053; 84702; 85027; 86308; 87502; 87651 90; 99281; 99284

== ENCOUNTER 2017-03-24 10:01 | Emergency (ER) | payer OTHER ==
[~2017-03-24] VITALS: Ht 162.6 cm; Wt 80.0 kg
[~2017-03-24 10:01] MED LIST changes: +MUCINEX DM ER1 EACH PO
[2017-03-24 10:54] LABS: HEMATOCRIT 37.9 % (36.0-46.0); MCH 27.5 PG (29.0-34.0); MCHC 31.7 G/DL (30.0-36.0); MCV 86.7 FL (83-99); RBC DIS.WIDTH-SD 54.1 % (39-53); RED BLOOD COUNT 4.37 M/uL (3.80-5.20); WHITE BLOOD COUNT 14.5 K/uL (4.1-10.2)
[2017-03-24 11:02] LABS: PLATELET COUNT 482 K/uL (156-360)
[2017-03-24 11:04] LABS: ALBUMIN 4.4 g/dL (3.2-4.8); CHLORIDE 103 mEq/L (99-109); POTASSIUM 4.3 mEq/L (3.7-5.4); SODIUM 143 mEq/L (136-147)
[2017-03-24 11:07] LABS: GLUCOSE 119 mg/dL (70-99); TOTAL PROTEIN 8.6 g/dL (6.4-8.3)
[2017-03-24 11:09] LABS: SERUM ETHYL ALCOHOL < 10 mg/dL; TOTAL BILIRUBIN 0.4 mg/dL (0.0-1.0)
[2017-03-24 11:10] LABS: ALKALINE PHOSPHATASE 97 IU/L (3-129); CREATININE 0.8 mg/dL (0.6-1.3); GFR ESTIMATE (CALCULATED) > 59 mL/min/
[2017-03-24 11:11] LABS: UREA NITROGEN (BUN) 14 mg/dL (9-23)
[2017-03-24 11:12] LABS: AST (GOT) 21 IU/L (2-34)
[2017-03-24 11:13] LABS: ALT (GPT) 15 IU/L (3-49)
[2017-03-24 13:15] LABS: AMPHETAMINE NEGATIVE (500 ng/mL); BENZODIAZEPINES NEGATIVE (150 ng/mL); COCAINE PRESUMPTIVE POSITIVE (150 ng/mL); METHAMPHETAMINE NEGATIVE (500 ng/mL); OPIATES (MORPHINE) NEGATIVE (100 ng/mL); PHENCYCLIDINE PRESUMPTIVE POSITIVE (25 ng/mL); THC CANNABINOIDS PRESUMPTIVE POSITIVE (50 ng/mL); TRICYCLIC ANTIDEPRESSANTS NEGATIVE (300 ng/mL)
[2017-03-24 13:16] LABS: BARBITURATES NEGATIVE (200 ng/mL); BUPRENORPHINE NEGATIVE (10 ng/mL); METHADONE PRESUMPTIVE POSITIVE (200 ng/mL); OXYCODONE NEGATIVE (100 ng/mL); PROPOXYPHENE NEGATIVE (300 ng/mL)
[2017-03-24 15:21] VITALS: BP 135/54
[2017-03-24] MEDS ORDERED: MOTRIN600 MG PO (20:50)
[2017-03-24] MEDS ORDERED: ZOFRAN4 MG PO (20:50)
== END 2017-03-24 15:22 | disposition home or self-care (01) ==
LOC: EME 10:01
PROVIDERS: Emergency Medicine
DX: F19.10 Other psychoactive substance abuse, uncomplicated (principal); Z59.0 Homelessness; F32.9 Major depressive disorder, single episode, unspecified; F41.9 Anxiety disorder, unspecified; Z88.0 Allergy status to penicillin; F17.200 Nicotine dependence, unspecified, uncomplicated; F11.20 Opioid dependence, uncomplicated
CPT/HCPCS: 80053; 82948; 84999; 85027; 99281; 99282; G0480

== ENCOUNTER 2017-03-24 17:43 | Emergency (ER) | payer OTHER ==
[~2017-03-24] VITALS: Ht 170.2 cm; Wt 77.5 kg
[2017-03-24 19:04] LABS: HEMATOCRIT 37.9 % (36.0-46.0); HEMOGLOBIN 11.9 G/DL (11.9-15.5); MCH 26.9 PG (29.0-34.0); MCHC 31.4 G/DL (30.0-36.0); MCV 85.7 FL (83-99); PLATELET COUNT 510 K/uL (156-360); RBC DIS.WIDTH-CV 17.2 % (11.8-14.6); RBC DIS.WIDTH-SD 54.2 % (39-53); RED BLOOD COUNT 4.42 M/uL (3.80-5.20)
[2017-03-24 19:14] LABS: ALBUMIN 4.5 g/dL (3.2-4.8); CHLORIDE 104 mEq/L (99-109); POTASSIUM 4.1 mEq/L (3.7-5.4); SODIUM 140 mEq/L (136-147)
[2017-03-24 19:16] LABS: GLUCOSE 150 mg/dL (70-99); TOTAL PROTEIN 8.6 g/dL (6.4-8.3)
[2017-03-24 19:19] LABS: TOTAL BILIRUBIN 0.3 mg/dL (0.0-1.0)
[2017-03-24 19:20] LABS: ALKALINE PHOSPHATASE 97 IU/L (3-129); CREATININE 0.7 mg/dL (0.6-1.3); GFR ESTIMATE (CALCULATED) > 59 mL/min/
[2017-03-24 19:21] LABS: UREA NITROGEN (BUN) 11 mg/dL (9-23)
[2017-03-24 19:22] LABS: AST (GOT) 21 IU/L (2-34)
[2017-03-24 19:23] LABS: ALT (GPT) 15 IU/L (3-49)
[2017-03-24 19:29] LABS: QUANTITATIVE HCG < 4.0 MIU/ML
[2017-03-24 20:22] LABS: LIPASE 27 U/L (1.0-51.0)
[2017-03-24 20:43] LABS: APPEARANCE CLEAR ((CLEAR)); BILIRUBIN NEGATIVE; BLOOD NEGATIVE; COLOR COLORLESS ((YELLOW)); GLUCOSE (STRIP) >=500; KETONES NEGATIVE; LEUKOCYTES NEGATIVE; NITRITE NEGATIVE; PROTEIN (STRIP) NEGATIVE; SPECIFIC GRAVITY 1.036 (1.000-1.030); UCUL ADDED? NO; UROBILINOGEN 0.2 MG/DL (0.2-1.0)
[2017-03-24] MEDS ORDERED: ZOFRAN4 MG PO (20:50)
[2017-03-24] MEDS ORDERED: MOTRIN600 MG PO (20:50)
[2017-03-24 21:18] VITALS: BP 128/88
== END 2017-03-24 21:19 | disposition home or self-care (01) ==
LOC: EME 17:43
DX: R11.2 Nausea with vomiting, unspecified (principal); R19.7 Diarrhea, unspecified; R51 Headache; R05 Cough; M54.9 Dorsalgia, unspecified; R10.9 Unspecified abdominal pain; F16.90 Hallucinogen use, unspecified, uncomplicated; F17.200 Nicotine dependence, unspecified, uncomplicated; Z59.0 Homelessness
CPT/HCPCS: 80053; 81003; 83690; 84702; 85027; 99281; 99284

== ENCOUNTER 2017-03-29 09:15 | Emergency (ER) | payer OTHER ==
[~2017-03-29] VITALS: Ht 160 cm; Wt 75.8 kg
[~2017-03-29 09:15] MED LIST changes: +MOTRIN600 MG PO
[2017-03-29 09:35] LABS: HEMATOCRIT 36.7 % (36.0-46.0); HEMOGLOBIN 11.2 G/DL (11.9-15.5); MCH 27.3 PG (29.0-34.0); MCHC 30.5 G/DL (30.0-36.0); MCV 89.5 FL (83-99); PLATELET COUNT 400 K/uL (156-360); RBC DIS.WIDTH-CV 17.8 % (11.8-14.6); RBC DIS.WIDTH-SD 57.9 % (39-53); WHITE BLOOD COUNT 18.6 K/uL (4.1-10.2)
[2017-03-29 10:50] LABS: QUANTITATIVE HCG < 4.0 MIU/ML
[2017-03-29 11:22] LABS: ALBUMIN 3.9 G/DL (3.2-4.8); ALKALINE PHOSPHATASE 72 IU/L (3-129); ALT (GPT) 12 IU/L (3-49); AST (GOT) 20 IU/L (2-34); CHLORIDE 104 MEQ/L (99-109); CREATININE 0.7 MG/DL (0.6-1.3); GFR ESTIMATE (CALCULATED) > 59 mL/min/; GLUCOSE 88 mg/dL (70-99); SODIUM 142 MEQ/L (136-147); TOTAL BILIRUBIN 0.2 MG/DL (0.0-1.0); UREA NITROGEN (BUN) 18 mg/dL (9-23)
[2017-03-29] MEDS ORDERED: ZOFRAN ODT4 MG PO (12:03)
[2017-03-29] MEDS ORDERED: IMODIUM A-D2 M2 PO (12:03)
[2017-03-29 12:14] VITALS: BP 96/75
== END 2017-03-29 12:15 | disposition home or self-care (01) ==
LOC: EME 09:15
DX: R11.2 Nausea with vomiting, unspecified (principal); R19.7 Diarrhea, unspecified; J02.9 Acute pharyngitis, unspecified; J34.89 Other specified disorders of nose and nasal sinuses; F11.99 Opioid use, unspecified with unspecified opioid-induced disorder; F17.200 Nicotine dependence, unspecified, uncomplicated
CPT/HCPCS: 80053; 81003; 84702; 85027; 99281; 99284

== ENCOUNTER 2017-04-13 15:15 | Emergency (ER) | payer OTHER ==
[~2017-04-13] VITALS: Ht 162.6 cm; Wt 75.9 kg
[~2017-04-13 15:15] MED LIST changes: +IMODIUM A-D2 M2 PO
[2017-04-13 16:31] LABS: BASOPHIL (%) 0.4 % (0-1); EOSINOPHIL COUNT 0.2 K/uL (0-0.3); HEMATOCRIT 31.9 % (36.0-46.0); HEMOGLOBIN 9.8 G/DL (11.9-15.5); IMMATURE GRANULOCYTE (%) 0.5 % (0.0-0.7); LYMPHOCYTE (%) 39.9 % (15-42); LYMPHOCYTE COUNT 4.3 K/uL (1.0-2.8); MCHC 30.7 G/DL (30.0-36.0); MCV 87.9 FL (83-99); MONOCYTE (%) 4.9 % (3-12); MONOCYTE COUNT 0.5 K/uL (0-0.8); NEUTROPHIL (%) 52.3 % (45-76); NEUTROPHIL COUNT 5.7 K/uL (1.8-6.4); PLATELET COUNT 379 K/uL (156-360); RBC DIS.WIDTH-CV 17.2 % (11.8-14.6); RBC DIS.WIDTH-SD 54.8 % (39-53); RED BLOOD COUNT 3.63 M/uL (3.80-5.20); WHITE BLOOD COUNT 10.9 K/uL (4.1-10.2)
[2017-04-13 16:39] LABS: ALBUMIN 3.9 g/dL (3.2-4.8); CHLORIDE 105 mEq/L (99-109); POTASSIUM 3.6 mEq/L (3.7-5.4); SODIUM 142 mEq/L (136-147)
[2017-04-13 16:41] LABS: GLUCOSE 99 mg/dL (70-99); TOTAL PROTEIN 7.5 g/dL (6.4-8.3)
[2017-04-13 16:43] LABS: TOTAL BILIRUBIN 0.2 mg/dL (0.0-1.0)
[2017-04-13 16:44] LABS: SERUM ETHYL ALCOHOL < 10 mg/dL
[2017-04-13 16:45] LABS: CREATININE 0.7 mg/dL (0.6-1.3); GFR ESTIMATE (CALCULATED) > 59 mL/min/
[2017-04-13 16:46] LABS: ALKALINE PHOSPHATASE 68 IU/L (3-129); AST (GOT) 11 IU/L (2-34); DIRECT BILIRUBIN 0.1 mg/dL (0.0-0.3)
[2017-04-13 16:47] LABS: UREA NITROGEN (BUN) 12 mg/dL (9-23)
[2017-04-13 16:48] LABS: SALICYLATE < 5.0 MG/DL (15-30)
[2017-04-13 16:49] LABS: ACETAMINOPHEN (TYLENOL) < 10 mcg/mL (10-30); ALT (GPT) 9 IU/L (3-49)
[2017-04-13 16:54] LABS: QUANTITATIVE HCG < 4.0 MIU/ML
[2017-04-13 17:03] LABS: APPEARANCE CLOUDY ((CLEAR)); BILIRUBIN NEGATIVE; BLOOD NEGATIVE; COLOR YELLOW ((YELLOW)); GLUCOSE (STRIP) NEGATIVE; KETONES NEGATIVE; LEUKOCYTES SMALL; NITRITE NEGATIVE; PROTEIN (STRIP) 30; SPECIFIC GRAVITY 1.025 (1.000-1.030)
[2017-04-13 17:13] LABS: AMPHETAMINE NEGATIVE (500 ng/mL); BARBITURATES PRESUMPTIVE POSITIVE (200 ng/mL); BENZODIAZEPINES PRESUMPTIVE POSITIVE (150 ng/mL); BUPRENORPHINE NEGATIVE (10 ng/mL); COCAINE PRESUMPTIVE POSITIVE (150 ng/mL); METHADONE PRESUMPTIVE POSITIVE (200 ng/mL); METHAMPHETAMINE NEGATIVE (500 ng/mL); OPIATES (MORPHINE) NEGATIVE (100 ng/mL); OXYCODONE NEGATIVE (100 ng/mL); PHENCYCLIDINE PRESUMPTIVE POSITIVE (25 ng/mL); PROPOXYPHENE NEGATIVE (300 ng/mL); THC CANNABINOIDS PRESUMPTIVE POSITIVE (50 ng/mL); TRICYCLIC ANTIDEPRESSANTS NEGATIVE (300 ng/mL)
[2017-04-13 17:31] LABS: BACTERIA RARE /HPF; EPITHELIAL CELLS RARE /HPF; HYALINE CASTS 0-5 /LPF; MUCUS 4+ /LPF; RED BLOOD CELLS NONE SEEN /HPF (0-5); WHITE BLOOD CELLS 0-5 /HPF (0-5)
[2017-04-13 17:34] LABS: BENZODIAZEPINES, URINE SCREEN POSITIVE (200 ng/mL)
[2017-04-13 20:18] VITALS: BP 104/69
== END 2017-04-13 20:29 | disposition home or self-care (01) ==
LOC: EME 15:15
PROVIDERS: Emergency Medicine
DX: T40.991A Poisoning by other psychodysleptics [hallucinogens], accidental (unintentional), initial encounter (principal); T40.7X1A Poisoning by cannabis (derivatives), accidental (unintentional), initial encounter; T40.5X1A Poisoning by cocaine, accidental (unintentional), initial encounter; F14.129 Cocaine abuse with intoxication, unspecified; F12.129 Cannabis abuse with intoxication, unspecified; F16.129 Hallucinogen abuse with intoxication, unspecified
CPT/HCPCS: 80048; 80076; 81003; 84702; 84999; 85025; 99281; 99285; G0480; J2310; J7030

== ENCOUNTER 2017-04-23 00:44 | Emergency (ER) | payer OTHER ==
[2017-04-23 00:58] LABS: BASOPHIL (%) 0.5 % (0-1); BASOPHIL COUNT 0.1 K/uL (0-0.1); EOSINOPHIL COUNT 0.2 K/uL (0-0.3); HEMATOCRIT 34.6 % (36.0-46.0); HEMOGLOBIN 10.8 G/DL (11.9-15.5); IMMATURE GRANULOCYTE (%) 0.4 % (0.0-0.7); LYMPHOCYTE (%) 43.7 % (15-42); LYMPHOCYTE COUNT 4.7 K/uL (1.0-2.8); MCH 26.9 PG (29.0-34.0); MCHC 31.2 G/DL (30.0-36.0); MCV 86.3 FL (83-99); MONOCYTE (%) 4.5 % (3-12); MONOCYTE COUNT 0.5 K/uL (0-0.8); NEUTROPHIL (%) 48.9 % (45-76); NEUTROPHIL COUNT 5.3 K/uL (1.8-6.4); PLATELET COUNT 439 K/uL (156-360); RBC DIS.WIDTH-CV 17.2 % (11.8-14.6); RBC DIS.WIDTH-SD 54.9 % (39-53); RED BLOOD COUNT 4.01 M/uL (3.80-5.20); WHITE BLOOD COUNT 10.8 K/uL (4.1-10.2)
[2017-04-23 01:06] LABS: AMYLASE 39 IU/L (1-118); CHLORIDE 105 mEq/L (99-109); POTASSIUM 3.6 mEq/L (3.7-5.4); SODIUM 142 mEq/L (136-147)
[2017-04-23 01:08] LABS: GLUCOSE 95 mg/dL (70-99)
[2017-04-23 01:11] LABS: SERUM ETHYL ALCOHOL 174 mg/dL
[2017-04-23 01:12] LABS: CREATININE 0.8 mg/dL (0.6-1.3); GFR ESTIMATE (CALCULATED) > 59 mL/min/
[2017-04-23 01:13] LABS: UREA NITROGEN (BUN) 8 mg/dL (9-23)
[2017-04-23 01:15] LABS: LIPASE 27 U/L (1.0-51.0)
[2017-04-23 01:20] LABS: CREATINE KINASE 805 IU/L (1-294)
[2017-04-23 01:21] LABS: QUANTITATIVE HCG < 4.0 MIU/ML
[2017-04-23 02:20] LABS: APPEARANCE CLEAR ((CLEAR)); BILIRUBIN NEGATIVE; BLOOD SMALL; COLOR STRAW ((YELLOW)); GLUCOSE (STRIP) NEGATIVE; KETONES NEGATIVE; LEUKOCYTES NEGATIVE; NITRITE NEGATIVE; PROTEIN (STRIP) NEGATIVE; SPECIFIC GRAVITY 1.023 (1.000-1.030); UROBILINOGEN 0.2 MG/DL (0.2-1.0)
[2017-04-23 02:23] LABS: BACTERIA NONE SEEN /HPF; EPITHELIAL CELLS RARE /HPF; MUCUS NONE SEEN /LPF; RED BLOOD CELLS 0-5 /HPF (0-5); UCUL ADDED? NO; WHITE BLOOD CELLS 0-5 /HPF (0-5)
[2017-04-23 02:28] LABS: AMPHETAMINE PRESUMPTIVE POSITIVE (500 ng/mL); BARBITURATES NEGATIVE (200 ng/mL); BENZODIAZEPINES NEGATIVE (150 ng/mL); BUPRENORPHINE NEGATIVE (10 ng/mL); COCAINE NEGATIVE (150 ng/mL); METHADONE PRESUMPTIVE POSITIVE (200 ng/mL); METHAMPHETAMINE NEGATIVE (500 ng/mL); OPIATES (MORPHINE) NEGATIVE (100 ng/mL); OXYCODONE NEGATIVE (100 ng/mL); PHENCYCLIDINE PRESUMPTIVE POSITIVE (25 ng/mL); PROPOXYPHENE NEGATIVE (300 ng/mL); THC CANNABINOIDS NEGATIVE (50 ng/mL); TRICYCLIC ANTIDEPRESSANTS NEGATIVE (300 ng/mL)
[2017-04-23] MEDS ORDERED: MOTRIN600 MG PO (05:48)
== END 2017-04-23 06:22 | disposition home or self-care (01) ==
LOC: TRA 00:44
PROVIDERS: Emergency Medicine
DX: S01.511A Laceration without foreign body of lip, initial encounter (principal); S00.83XA Contusion of other part of head, initial encounter; S00.81XA Abrasion of other part of head, initial encounter; F10.129 Alcohol abuse with intoxication, unspecified; V03.10XA Pedestrian on foot injured in collision with car, pick-up truck or van in traffic accident, initial encounter; Y92.410 Unspecified street and highway as the place of occurrence of the external cause; F17.200 Nicotine dependence, unspecified, uncomplicated; F31.9 Bipolar disorder, unspecified; F41.9 Anxiety disorder, unspecified
CPT/HCPCS: 70450; 70486; 71260; 72125; 72129; 72132; 74177; 80048; 81003; 82150; 82550; 83690; 84702; 84999; 85025; 86850; 86900; 86901; 99281; 99285; G0480; J1630; J2060; J3010; J7030

== ENCOUNTER 2017-04-27 10:53 | Emergency (ER) | payer OTHER ==
[~2017-04-27] VITALS: Ht 157.5 cm; Wt 75.8 kg
[2017-04-27] MEDS ORDERED: CLEOCIN300 MG PO (12:00)
[2017-04-27] MEDS ORDERED: IBUPROFEN800 MG PO (12:08)
[2017-04-27 12:25] VITALS: BP 122/67
== END 2017-04-27 12:28 | disposition home or self-care (01) ==
LOC: EME 10:53
DX: K13.0 Diseases of lips (principal); S01.511D Laceration without foreign body of lip, subsequent encounter; V99.XXXD Unspecified transport accident, subsequent encounter; Z88.0 Allergy status to penicillin; F17.200 Nicotine dependence, unspecified, uncomplicated
CPT/HCPCS: 99281; 99283

== ENCOUNTER 2017-04-30 23:32 | Emergency (ER) | payer OTHER ==
[~2017-04-30] VITALS: Ht 160 cm; Wt 78.0 kg
[~2017-04-30 23:32] MED LIST changes: +CLEOCIN300 MG PO
[2017-05-01 02:42] VITALS: BP 123/83
== END 2017-05-01 02:56 | disposition home or self-care (01) ==
LOC: EME 23:32
PROVIDERS: Emergency Medicine
DX: T50.991A Poisoning by other drugs, medicaments and biological substances, accidental (unintentional), initial encounter (principal); S01.511D Laceration without foreign body of lip, subsequent encounter; Z48.02 Encounter for removal of sutures; F41.9 Anxiety disorder, unspecified; F32.9 Major depressive disorder, single episode, unspecified; F17.200 Nicotine dependence, unspecified, uncomplicated; Z88.0 Allergy status to penicillin
CPT/HCPCS: 82948; 99281; 99283

== ENCOUNTER 2017-05-05 19:10 | Emergency (ER) | payer OTHER ==
[~2017-05-05] VITALS: Ht 160 cm; Wt 75.2 kg
[2017-05-05 19:54] LABS: APPEARANCE SL.HAZY ((CLEAR)); BILIRUBIN NEGATIVE; BLOOD NEGATIVE; COLOR YELLOW ((YELLOW)); GLUCOSE (STRIP) NEGATIVE; KETONES 5; LEUKOCYTES MODERATE; NITRITE NEGATIVE; PROTEIN (STRIP) 30; SPECIFIC GRAVITY 1.017 (1.000-1.030); UROBILINOGEN 0.2 MG/DL (0.2-1.0)
[2017-05-05 20:00] LABS: HEMATOCRIT 37.7 % (36.0-46.0); HEMOGLOBIN 11.9 G/DL (11.9-15.5); MCH 27.4 PG (29.0-34.0); MCHC 31.6 G/DL (30.0-36.0); MCV 86.9 FL (83-99); PLATELET COUNT 421 K/uL (156-360); RBC DIS.WIDTH-CV 17.2 % (11.8-14.6); RBC DIS.WIDTH-SD 54.4 % (39-53); RED BLOOD COUNT 4.34 M/uL (3.80-5.20); WHITE BLOOD COUNT 13.8 K/uL (4.1-10.2)
[2017-05-05 20:04] LABS: BACTERIA NONE SEEN /HPF; EPITHELIAL CELLS 1+ /HPF; HYALINE CASTS 0-5 /LPF; MUCUS NONE SEEN /LPF; RED BLOOD CELLS 0-5 /HPF (0-5); WHITE BLOOD CELLS 0-5 /HPF (0-5)
[2017-05-05 20:09] LABS: ALBUMIN 4.7 g/dL (3.2-4.8); CHLORIDE 107 mEq/L (99-109); POTASSIUM 4.1 mEq/L (3.7-5.4); SODIUM 140 mEq/L (136-147)
[2017-05-05 20:11] LABS: GLUCOSE 96 mg/dL (70-99); TOTAL PROTEIN 8.3 g/dL (6.4-8.3)
[2017-05-05 20:13] LABS: AMPHETAMINE NEGATIVE (500 ng/mL); BARBITURATES NEGATIVE (200 ng/mL); BENZODIAZEPINES NEGATIVE (150 ng/mL); BUPRENORPHINE NEGATIVE (10 ng/mL); COCAINE PRESUMPTIVE POSITIVE (150 ng/mL); METHADONE PRESUMPTIVE POSITIVE (200 ng/mL); METHAMPHETAMINE NEGATIVE (500 ng/mL); OPIATES (MORPHINE) PRESUMPTIVE POSITIVE (100 ng/mL); OXYCODONE NEGATIVE (100 ng/mL); PHENCYCLIDINE PRESUMPTIVE POSITIVE (25 ng/mL); PROPOXYPHENE NEGATIVE (300 ng/mL); THC CANNABINOIDS PRESUMPTIVE POSITIVE (50 ng/mL); TRICYCLIC ANTIDEPRESSANTS NEGATIVE (300 ng/mL)
[2017-05-05 20:13] LABS: TOTAL BILIRUBIN 0.3 mg/dL (0.0-1.0)
[2017-05-05 20:14] LABS: SERUM ETHYL ALCOHOL < 10 mg/dL
[2017-05-05 20:15] LABS: ALKALINE PHOSPHATASE 90 IU/L (3-129); CREATININE 0.8 mg/dL (0.6-1.3); GFR ESTIMATE (CALCULATED) > 59 mL/min/
[2017-05-05 20:16] LABS: AST (GOT) 18 IU/L (2-34); UREA NITROGEN (BUN) 12 mg/dL (9-23)
[2017-05-05 20:18] LABS: ALT (GPT) 9 IU/L (3-49)
[2017-05-05 20:23] LABS: QUANTITATIVE HCG < 4.0 MIU/ML
[2017-05-06 04:04] VITALS: BP 128/98
[2017-05-07] MEDS ORDERED: ATARAX,VISTARIL50 MG PO (20:42)
[2017-05-07] MEDS ORDERED: CATAPRES-TTS 11 EACH TD (20:42)
[2017-05-07] MEDS ORDERED: ZOFRAN ODT4 MG PO (20:42)
== END 2017-05-06 04:09 | disposition home or self-care (01) ==
LOC: EME → EDBD 19:10 → EME 19:10
PROVIDERS: Emergency Medicine
DX: T50.901A Poisoning by unspecified drugs, medicaments and biological substances, accidental (unintentional), initial encounter (principal); F19.10 Other psychoactive substance abuse, uncomplicated; R41.82 Altered mental status, unspecified; F31.9 Bipolar disorder, unspecified; F41.9 Anxiety disorder, unspecified; F32.9 Major depressive disorder, single episode, unspecified; F17.210 Nicotine dependence, cigarettes, uncomplicated; Z88.0 Allergy status to penicillin; Z88.1 Allergy status to other antibiotic agents
CPT/HCPCS: 70450; 80053; 81003; 84702; 84999; 85027; 99281; 99284; G0480; J1630; J2060

== ENCOUNTER 2017-05-07 18:21 | Emergency (ER) | payer OTHER ==
[~2017-05-07] VITALS: Ht 160 cm; Wt 76.3 kg
[2017-05-07] MEDS ORDERED: ZOFRAN ODT4 MG PO (20:42)
[2017-05-07] MEDS ORDERED: ATARAX,VISTARIL50 MG PO (20:42)
[2017-05-07] MEDS ORDERED: CATAPRES-TTS 11 EACH TD (20:42)
[2017-05-07 21:52] VITALS: BP 126/68
== END 2017-05-07 22:28 | disposition home or self-care (01) ==
LOC: EME 18:21
DX: F11.23 Opioid dependence with withdrawal (principal); R19.7 Diarrhea, unspecified; R11.0 Nausea; F41.9 Anxiety disorder, unspecified; F17.200 Nicotine dependence, unspecified, uncomplicated
CPT/HCPCS: 99281; 99284; Q0177

== ENCOUNTER 2017-05-28 09:50 | Emergency (ER) | payer OTHER ==
[~2017-05-28] VITALS: Ht 160 cm; Wt 77.0 kg
[~2017-05-28 09:50] MED LIST changes: +ATARAX,VISTARIL50 MG PO; +CATAPRES-TTS 11 EACH TD
[2017-05-28 10:29] LABS: HEMATOCRIT 38.9 % (36.0-46.0); HEMOGLOBIN 12.1 G/DL (11.9-15.5); MCH 26.9 PG (29.0-34.0); MCHC 31.1 G/DL (30.0-36.0); MCV 86.6 FL (83-99); PLATELET COUNT 341 K/uL (156-360); RBC DIS.WIDTH-CV 16.7 % (11.8-14.6); RED BLOOD COUNT 4.49 M/uL (3.80-5.20); WHITE BLOOD COUNT 8.7 K/uL (4.1-10.2)
[2017-05-28 10:38] LABS: ALBUMIN 4.4 g/dL (3.2-4.8); CHLORIDE 108 mEq/L (99-109); POTASSIUM 3.8 mEq/L (3.7-5.4); SODIUM 142 mEq/L (136-147)
[2017-05-28 10:41] LABS: GLUCOSE 103 mg/dL (70-99); TOTAL PROTEIN 7.4 g/dL (6.4-8.3)
[2017-05-28 10:43] LABS: TOTAL BILIRUBIN 0.4 mg/dL (0.0-1.0)
[2017-05-28 10:44] LABS: APPEARANCE CLOUDY ((CLEAR)); BILIRUBIN NEGATIVE; BLOOD NEGATIVE; COLOR YELLOW ((YELLOW)); GLUCOSE (STRIP) NEGATIVE; KETONES NEGATIVE; LEUKOCYTES TRACE; NITRITE NEGATIVE; PROTEIN (STRIP) 30; SPECIFIC GRAVITY 1.023 (1.000-1.030); UROBILINOGEN 0.2 MG/DL (0.2-1.0)
[2017-05-28 10:44] LABS: ALKALINE PHOSPHATASE 76 IU/L (3-129); SERUM ETHYL ALCOHOL < 10 mg/dL
[2017-05-28 10:45] VITALS: BP 150/82
[2017-05-28 10:45] LABS: CREATININE 0.7 mg/dL (0.6-1.3); GFR ESTIMATE (CALCULATED) > 59 mL/min/
[2017-05-28 10:46] LABS: AST (GOT) 15 IU/L (2-34); UREA NITROGEN (BUN) 9 mg/dL (9-23)
[2017-05-28 10:47] LABS: ALT (GPT) 11 IU/L (3-49)
[2017-05-28 10:48] LABS: LIPASE 27 U/L (1.0-51.0)
[2017-05-28 10:50] LABS: BACTERIA RARE /HPF; EPITHELIAL CELLS 4+ /HPF; MUCUS TRACE /LPF; RED BLOOD CELLS 0-5 /HPF (0-5); UCUL ADDED? NO; WHITE BLOOD CELLS 0-5 /HPF (0-5)
[2017-05-28 10:53] LABS: AMPHETAMINE NEGATIVE (500 ng/mL); BARBITURATES NEGATIVE (200 ng/mL); BENZODIAZEPINES NEGATIVE (150 ng/mL); BUPRENORPHINE NEGATIVE (10 ng/mL); COCAINE PRESUMPTIVE POSITIVE (150 ng/mL); METHADONE NEGATIVE (200 ng/mL); METHAMPHETAMINE NEGATIVE (500 ng/mL); OPIATES (MORPHINE) PRESUMPTIVE POSITIVE (100 ng/mL); OXYCODONE NEGATIVE (100 ng/mL); PHENCYCLIDINE PRESUMPTIVE POSITIVE (25 ng/mL); PROPOXYPHENE NEGATIVE (300 ng/mL); THC CANNABINOIDS NEGATIVE (50 ng/mL); TRICYCLIC ANTIDEPRESSANTS NEGATIVE (300 ng/mL)
[2017-05-28 10:54] LABS: QUANTITATIVE HCG < 4.0 MIU/ML
== END 2017-05-28 10:59 | disposition left against medical advice (07) ==
LOC: EME 09:50
PROVIDERS: Emergency Medicine
DX: F19.10 Other psychoactive substance abuse, uncomplicated (principal); R11.10 Vomiting, unspecified; F31.9 Bipolar disorder, unspecified; F32.9 Major depressive disorder, single episode, unspecified; F17.200 Nicotine dependence, unspecified, uncomplicated; Z88.0 Allergy status to penicillin; Z88.1 Allergy status to other antibiotic agents
CPT/HCPCS: 80053; 81003; 83690; 84702; 84999; 85027; 99281; 99284; G0480; J1630

== ENCOUNTER 2017-07-19 11:32 | Emergency (ER) | payer OTHER ==
[~2017-07-19] VITALS: Ht 160 cm; Wt 71.0 kg
[2017-07-19 12:17] LABS: BASOPHIL (%) 0.5 % (0-1); BASOPHIL COUNT 0.1 K/uL (0-0.1); EOSINOPHIL (%) 3.9 % (0-5); EOSINOPHIL COUNT 0.4 K/uL (0-0.3); HEMATOCRIT 35.8 % (36.0-46.0); HEMOGLOBIN 11.1 G/DL (11.9-15.5); IMMATURE GRANULOCYTE (%) 0.2 % (0.0-0.7); LYMPHOCYTE (%) 26.2 % (15-42); LYMPHOCYTE COUNT 2.5 K/uL (1.0-2.8); MCH 27.5 PG (29.0-34.0); MCV 88.6 FL (83-99); MONOCYTE (%) 5.3 % (3-12); MONOCYTE COUNT 0.5 K/uL (0-0.8); NEUTROPHIL (%) 63.9 % (45-76); PLATELET COUNT 341 K/uL (156-360); RBC DIS.WIDTH-CV 17.1 % (11.8-14.6); RBC DIS.WIDTH-SD 55.9 % (39-53); RED BLOOD COUNT 4.04 M/uL (3.80-5.20); WHITE BLOOD COUNT 9.4 K/uL (4.1-10.2)
[2017-07-19 12:23] LABS: CHLORIDE 106 mEq/L (99-109); POTASSIUM 3.8 mEq/L (3.7-5.4); SODIUM 142 mEq/L (136-147)
[2017-07-19 12:25] LABS: GLUCOSE 98 mg/dL (70-99)
[2017-07-19 12:28] LABS: SERUM ETHYL ALCOHOL < 10 mg/dL
[2017-07-19 12:29] LABS: CREATININE 0.7 mg/dL (0.6-1.3); GFR ESTIMATE (CALCULATED) > 59 mL/min/
[2017-07-19 12:30] LABS: UREA NITROGEN (BUN) 12 mg/dL (9-23)
[2017-07-19 12:37] LABS: QUANTITATIVE HCG < 4.0 MIU/ML
[2017-07-19 13:21] VITALS: BP 140/116
== END 2017-07-19 13:22 | disposition home or self-care (01) ==
LOC: EME 11:32
PROVIDERS: Emergency Medicine
DX: T40.991A Poisoning by other psychodysleptics [hallucinogens], accidental (unintentional), initial encounter (principal); F32.9 Major depressive disorder, single episode, unspecified; F17.200 Nicotine dependence, unspecified, uncomplicated; Z88.0 Allergy status to penicillin
CPT/HCPCS: 80048; 81003; 84702; 85025; 99281; 99284; G0480; J2310

== ENCOUNTER 2017-07-21 15:28 | Emergency (ER) | payer OTHER ==
[~2017-07-21] VITALS: Ht 160 cm; Wt 65.3 kg
[2017-07-21 16:35] LABS: HEMATOCRIT 38.1 % (36.0-46.0); HEMOGLOBIN 11.8 G/DL (11.9-15.5); MCH 27.4 PG (29.0-34.0); MCV 88.4 FL (83-99); PLATELET COUNT 442 K/uL (156-360); RBC DIS.WIDTH-CV 17.1 % (11.8-14.6); RBC DIS.WIDTH-SD 55.5 % (39-53); RED BLOOD COUNT 4.31 M/uL (3.80-5.20); WHITE BLOOD COUNT 9.7 K/uL (4.1-10.2)
[2017-07-21 16:49] LABS: ALBUMIN 4.9 g/dL (3.2-4.8); CHLORIDE 106 mEq/L (99-109); POTASSIUM 3.6 mEq/L (3.7-5.4); SODIUM 146 mEq/L (136-147)
[2017-07-21 16:51] LABS: GLUCOSE 96 mg/dL (70-99); TOTAL PROTEIN 8.6 g/dL (6.4-8.3)
[2017-07-21 16:53] LABS: TOTAL BILIRUBIN 0.3 mg/dL (0.0-1.0)
[2017-07-21 16:54] LABS: SERUM ETHYL ALCOHOL < 10 mg/dL
[2017-07-21 16:55] LABS: ALKALINE PHOSPHATASE 89 IU/L (3-129); CREATININE 0.8 mg/dL (0.6-1.3); GFR ESTIMATE (CALCULATED) > 59 mL/min/
[2017-07-21 16:56] LABS: AST (GOT) 13 IU/L (2-34)
[2017-07-21 16:57] LABS: UREA NITROGEN (BUN) 16 mg/dL (9-23)
[2017-07-21 16:57] LABS: APPEARANCE SL.HAZY ((CLEAR)); BILIRUBIN NEGATIVE; BLOOD SMALL; COLOR AMBER ((YELLOW)); GLUCOSE (STRIP) NEGATIVE; KETONES 5; LEUKOCYTES MODERATE; NITRITE NEGATIVE; PROTEIN (STRIP) 100; SPECIFIC GRAVITY 1.031 (1.000-1.030)
[2017-07-21 16:58] LABS: SALICYLATE < 5.0 MG/DL (15-30)
[2017-07-21 16:59] LABS: ACETAMINOPHEN (TYLENOL) < 10 mcg/mL (10-30); ALT (GPT) 6 IU/L (3-49)
[2017-07-21 17:01] LABS: CREATINE KINASE 86 IU/L (1-294)
[2017-07-21 17:06] LABS: COCAINE PRESUMPTIVE POSITIVE (150 ng/mL); PHENCYCLIDINE PRESUMPTIVE POSITIVE (25 ng/mL); THC CANNABINOIDS PRESUMPTIVE POSITIVE (50 ng/mL)
[2017-07-21 17:07] LABS: AMPHETAMINE PRESUMPTIVE POSITIVE (500 ng/mL); BARBITURATES NEGATIVE (200 ng/mL); BENZODIAZEPINES NEGATIVE (150 ng/mL); BUPRENORPHINE PRESUMPTIVE POSITIVE (10 ng/mL); METHADONE NEGATIVE (200 ng/mL); METHAMPHETAMINE PRESUMPTIVE POSITIVE (500 ng/mL); OPIATES (MORPHINE) NEGATIVE (100 ng/mL); OXYCODONE NEGATIVE (100 ng/mL); PROPOXYPHENE NEGATIVE (300 ng/mL); TRICYCLIC ANTIDEPRESSANTS NEGATIVE (300 ng/mL)
[2017-07-21 18:14] VITALS: BP 138/89
[2017-07-21 18:16] LABS: BACTERIA RARE /HPF; EPITHELIAL CELLS 1+ /HPF; MUCUS 2+ /LPF; RED BLOOD CELLS RARE /HPF (0-5)
== END 2017-07-21 18:16 | disposition home or self-care (01) ==
LOC: EME 15:28
PROVIDERS: Emergency Medicine
DX: F16.10 Hallucinogen abuse, uncomplicated (principal); F19.10 Other psychoactive substance abuse, uncomplicated; F32.9 Major depressive disorder, single episode, unspecified; F31.9 Bipolar disorder, unspecified; F17.200 Nicotine dependence, unspecified, uncomplicated; Z59.0 Homelessness; Z88.0 Allergy status to penicillin; Z88.1 Allergy status to other antibiotic agents
CPT/HCPCS: 71045; 80053; 80175 90; 81003; 82140; 82550; 84999; 85027; 93005; 99281; 99285; G0480; J7030

== ENCOUNTER 2017-08-04 04:22 | Emergency (ER) | payer OTHER ==
[~2017-08-04] VITALS: Ht 157.5 cm; Wt 73.2 kg
[2017-08-04 05:31] LABS: HEMATOCRIT 32.2 % (36.0-46.0); MCH 27.3 PG (29.0-34.0); MCHC 31.1 G/DL (30.0-36.0); PLATELET COUNT 298 K/uL (156-360); RBC DIS.WIDTH-CV 16.3 % (11.8-14.6); RBC DIS.WIDTH-SD 52.6 % (39-53); RED BLOOD COUNT 3.66 M/uL (3.80-5.20); WHITE BLOOD COUNT 11.8 K/uL (4.1-10.2)
[2017-08-04 05:35] LABS: ALBUMIN 4.3 g/dL (3.2-4.8); CHLORIDE 102 mEq/L (99-109); POTASSIUM 2.9 mEq/L (3.7-5.4); SODIUM 136 mEq/L (136-147)
[2017-08-04 05:38] LABS: GLUCOSE 92 mg/dL (70-99); TOTAL PROTEIN 7.2 g/dL (6.4-8.3)
[2017-08-04 05:39] LABS: TOTAL BILIRUBIN 0.3 mg/dL (0.0-1.0)
[2017-08-04 05:41] LABS: CREATININE 0.7 mg/dL (0.6-1.3); GFR ESTIMATE (CALCULATED) > 59 mL/min/; SERUM ETHYL ALCOHOL < 10 mg/dL
[2017-08-04 05:42] LABS: ALKALINE PHOSPHATASE 63 IU/L (3-129)
[2017-08-04 05:43] LABS: AST (GOT) 11 IU/L (2-34); UREA NITROGEN (BUN) 10 mg/dL (9-23)
[2017-08-04 05:45] LABS: ACETAMINOPHEN (TYLENOL) < 10 mcg/mL (10-30); ALT (GPT) 14 IU/L (3-49); SALICYLATE < 5.0 MG/DL (15-30)
[2017-08-04 05:46] LABS: LIPASE 16 U/L (1.0-51.0)
[2017-08-04 05:55] LABS: AMPHETAMINE NEGATIVE (500 ng/mL); BARBITURATES NEGATIVE (200 ng/mL); BENZODIAZEPINES NEGATIVE (150 ng/mL); BUPRENORPHINE NEGATIVE (10 ng/mL); COCAINE PRESUMPTIVE POSITIVE (150 ng/mL); METHADONE NEGATIVE (200 ng/mL); METHAMPHETAMINE NEGATIVE (500 ng/mL); OPIATES (MORPHINE) NEGATIVE (100 ng/mL); OXYCODONE NEGATIVE (100 ng/mL); PHENCYCLIDINE PRESUMPTIVE POSITIVE (25 ng/mL); PROPOXYPHENE NEGATIVE (300 ng/mL); THC CANNABINOIDS NEGATIVE (50 ng/mL); TRICYCLIC ANTIDEPRESSANTS NEGATIVE (300 ng/mL)
[2017-08-04 05:55] LABS: QUANTITATIVE HCG < 4.0 MIU/ML
[2017-08-04 07:10] VITALS: BP 141/96
== END 2017-08-04 07:15 | disposition home or self-care (01) ==
LOC: EME → EDBD 04:22 → EME 07:15
PROVIDERS: Emergency Medicine
DX: F16.10 Hallucinogen abuse, uncomplicated (principal); F32.9 Major depressive disorder, single episode, unspecified; R41.82 Altered mental status, unspecified; R45.1 Restlessness and agitation; F17.200 Nicotine dependence, unspecified, uncomplicated
CPT/HCPCS: 80053; 83690; 84702; 84999; 85027; 90839; 93005; 99281; 99284; G0480

== ENCOUNTER 2017-10-12 09:53 | Emergency (ER) | payer OTHER ==
[~2017-10-12] VITALS: Ht 160 cm; Wt 65.2 kg
[2017-10-12 10:23] LABS: APPEARANCE SL.HAZY ((CLEAR)); BILIRUBIN NEGATIVE; BLOOD NEGATIVE; COLOR AMBER ((YELLOW)); GLUCOSE (STRIP) NEGATIVE; KETONES 20; LEUKOCYTES TRACE; NITRITE NEGATIVE; PROTEIN (STRIP) 30; SPECIFIC GRAVITY 1.033 (1.000-1.030)
[2017-10-12 10:45] LABS: EPITHELIAL CELLS 2+ /HPF; MUCUS 3+ /LPF; RED BLOOD CELLS 0-5 /HPF (0-5); UCUL ADDED? YES
[2017-10-12 10:46] LABS: BACTERIA 1+ /HPF
[2017-10-12 11:30] LABS: HEMATOCRIT 35.8 % (36.0-46.0); HEMOGLOBIN 11.2 G/DL (11.9-15.5); MCH 26.2 PG (29.0-34.0); MCHC 31.3 G/DL (30.0-36.0); MCV 83.8 FL (83-99); PLATELET COUNT 338 K/uL (156-360); RBC DIS.WIDTH-CV 16.7 % (11.8-14.6); RBC DIS.WIDTH-SD 50.6 % (39-53); RED BLOOD COUNT 4.27 M/uL (3.80-5.20)
[2017-10-12] MEDS ORDERED: ZOFRAN4 MG PO (11:31)
[2017-10-12] MEDS ORDERED: MOTRIN600 MG PO (11:31)
[2017-10-12 11:41] LABS: ALBUMIN 4.7 g/dL (3.2-4.8); CHLORIDE 108 mEq/L (99-109); POTASSIUM 4.1 mEq/L (3.7-5.4); SODIUM 141 mEq/L (136-147)
[2017-10-12 11:43] LABS: GLUCOSE 95 mg/dL (70-99); TOTAL PROTEIN 8.6 g/dL (6.4-8.3)
[2017-10-12 11:45] LABS: TOTAL BILIRUBIN 0.5 mg/dL (0.0-1.0)
[2017-10-12 11:47] LABS: ALKALINE PHOSPHATASE 75 IU/L (3-129); CREATININE 0.9 mg/dL (0.6-1.3); GFR ESTIMATE (CALCULATED) > 59 mL/min/
[2017-10-12 11:48] LABS: AST (GOT) 20 IU/L (2-34); UREA NITROGEN (BUN) 15 mg/dL (9-23)
[2017-10-12 11:50] LABS: ALT (GPT) 11 IU/L (3-49)
[2017-10-12 11:51] LABS: PHENCYCLIDINE PRESUMPTIVE POSITIVE (25 ng/mL); THC CANNABINOIDS NEGATIVE (50 ng/mL)
[2017-10-12 11:52] LABS: AMPHETAMINE NEGATIVE (500 ng/mL); BARBITURATES NEGATIVE (200 ng/mL); BENZODIAZEPINES PRESUMPTIVE POSITIVE (150 ng/mL); BUPRENORPHINE NEGATIVE (10 ng/mL); COCAINE PRESUMPTIVE POSITIVE (150 ng/mL); METHADONE PRESUMPTIVE POSITIVE (200 ng/mL); METHAMPHETAMINE NEGATIVE (500 ng/mL); OPIATES (MORPHINE) PRESUMPTIVE POSITIVE (100 ng/mL); OXYCODONE NEGATIVE (100 ng/mL); PROPOXYPHENE NEGATIVE (300 ng/mL); TRICYCLIC ANTIDEPRESSANTS NEGATIVE (300 ng/mL)
[2017-10-12 11:57] LABS: QUANTITATIVE HCG < 4.0 MIU/ML
[2017-10-12 12:10] VITALS: BP 108/64
[2017-10-12 12:52] LABS: BENZODIAZEPINES, URINE SCREEN POSITIVE (200 ng/mL)
== END 2017-10-12 12:13 | disposition home or self-care (01) ==
LOC: EME 09:53
DX: F11.23 Opioid dependence with withdrawal (principal); F32.9 Major depressive disorder, single episode, unspecified; F31.9 Bipolar disorder, unspecified; F17.200 Nicotine dependence, unspecified, uncomplicated; Z79.891 Long term (current) use of opiate analgesic; Z88.0 Allergy status to penicillin; Z88.1 Allergy status to other antibiotic agents
CPT/HCPCS: 80053; 81003; 84702; 84999; 85027; 87086; 99281; 99285